=== PATIENT | female | born 1945 | race American Indian/Alaskan Native ===

== ENCOUNTER 2017-07-08 14:21 | Inpatient (IN) | payer MEDICARE, OTHER ==
[~2017-07-08] VITALS: Ht 165.1 cm; Wt 75.0 kg
[2017-07-08 14:31] LABS: BASOPHILS % 0.1 % (0.0-2.0); EOSINOPHILS # 0.1 10^3/ul (0.0-0.5); HEMATOCRIT 44.3 % (37.0-47.0); LYMPHOCYTES # 2.3 10^3/ul (0.8-2.9); LYMPHOCYTES % 18.1 % (15.0-51.0); MEAN CORPUSCULAR HEMOGLOBIN 30.9 pg (29.0-33.0); MEAN CORPUSCULAR HGB CONC 33.9 g/dl (32.0-37.0); MEAN CORPUSCULAR VOLUME 91.2 fl (82.0-101.0); MEAN PLATELET VOLUME 10.6 fl (7.4-10.4); MONOCYTES % 8.2 % (0.0-11.0); NEUTROPHIL # 9.1 10^3/ul (1.6-7.5); PLATELET COUNT 351 10^3/UL (140-415); RED BLOOD COUNT 4.86 10^6/ul (4.20-5.40); WHITE BLOOD COUNT 12.6 10^3/ul (4.8-10.8)
[2017-07-08 14:46] LABS: INR 0.91; PROTIME 12.3 Sec (12.2-14.2)
[2017-07-08 14:47] LABS: PARTIAL THROMBOPLASTIN TIME 32.1 Sec (25.0-35.0)
[2017-07-08 14:48] LABS: ANION GAP 16 (8-16); BLOOD UREA NITROGEN 24 mg/dl (7-20); CARBON DIOXIDE 23 mmol/L (21-31); CHLORIDE 108 mmol/L (97-110); CREATININE 0.96 mg/dl (0.44-1.00); GLUCOSE 117 mg/dl (70-220); POTASSIUM 4.3 mmol/L (3.5-5.1); SODIUM 143 mmol/L (135-144)
[2017-07-08 15:06] LABS: TROPONIN-I < 0.012 ng/ml (0.00-0.12)
--- NOTE | 2017-07-08 15:06 | STROKE ---
Date/Time of Note Date/Time of Note DATE: 07/08/17 TIME: 17:05 Patient Information General Patient location: emergency Arrival Date Age 71 Gender female Weight 72.73 kg Vital Signs Vital Signs Vital Signs Date Time Temp Pulse Resp B/P Pulse Ox O2 Delivery O2 Flow Rate FiO2 07/08/17 14:25 98.6 75 26 155/109 98 Labs Hematology Labs Hematology Test 07/08/17 14:25 White Blood Count 12.610^3/ul (4.8-10.8) Red Blood Count 4.8610^6/ul (4.20-5.40) Hemoglobin 15.0g/dl (12.0-16.0) Hematocrit 44.3% (37.0-47.0) Mean Corpuscular Volume 91.2fl (82.0-101.0) Mean Corpuscular Hemoglobin 30.9pg (29.0-33.0) Mean Corpuscular Hemoglobin Concent 33.9g/dl (32.0-37.0) Red Cell Distribution Width 13.0% (11.5-14.5) Platelet Count 96769^3/UL (140-415) Mean Platelet Volume 10.6fl (7.4-10.4) Neutrophils % 72.0% (39.0-77.0) Lymphocytes % 18.1% (15.0-51.0) Monocytes % 8.2% (0.0-11.0) Eosinophils % 1.0% (0.0-7.0) Basophils % 0.1% (0.0-2.0) Nucleated Red Blood Cells % 0.0/100WBC (0.0-0.0) Neutrophils # 9.110^3/ul (1.6-7.5) Lymphocytes # 2.310^3/ul (0.8-2.9) Monocytes # 1.010^3/ul (0.3-0.9) Eosinophils # 0.110^3/ul (0.0-0.5) Basophils # 0.010^3/ul (0.0-0.1) Nucleated Red Blood Cells # 0.010^3/ul (0.0-0.0) Chemistry Labs Chemistry Test 07/08/17 14:25 Sodium Level 143mmol/L (135-144) Potassium Level 4.3mmol/L (3.5-5.1) Chloride Level 108mmol/L (97-110) Carbon Dioxide Level 23mmol/L (21-31) Anion Gap 16 (8-16) Blood Urea Nitrogen 24mg/dl (7-20) Creatinine 0.96mg/dl (0.44-1.00) Glucose Level 117mg/dl (70-220) Hemoglobin A1c 5.2% (0-5.9) Calcium Level 10.0mg/dl (8.4-10.2) Coagulation Labs: Coagulation Test 07/08/17 14:25 Prothrombin Time 12.3Sec (12.2-14.2) Prothrombin Time Ratio 1.0 INR International Normalized Ratio 0.91 Activated Partial Thromboplast Time 32.1Sec (25.0-35.0) History & Physical History of Present Illness 71 F PMH HTN with R hemiplegia upon awakening at 1300 07/08/17 PST from sleep. Unclear LKW as unknown what time the patient went to bed. NIH Stroke Scale NIH Stroke Scale Total Score: 12 Date/Time Recorded DATE: 07/08/17 TIME: 17:05 Submitted By Jamie Rodríguez t-PA Imaging Review Imaging Reviewed: No Date/Time Imaging Reviewed DATE: 07/08/17 TIME: 17:05 Reason Not Reviewed Not available in remote PACS t-PA Administration Recommendation: No Weight 72.73 kg Recommedation submitted by Jamie Rodríguez Reason t-PA not Recommended LKW unknown Recommendations Impression Diagnosis 71 YO W with suspected stroke causing R hemiplegia and dysarthria. Not an IV tPA candidate as LKW unknown. Patient able to deny vision problems such as field cut. Not aphasic although hypophonic. No neglect. VAN criteria negative for LVO thus not recommending acute transfer for evaluation for mechanical thrombectomy. Imaging not appearing in remote PACS for me to personally review. Recommendation - Would clarify home medication regimen with family. If not on aspirin would load with 300 mg [place] if NCHCT negative for ICH - F/u with Radiology re: read of NCHCT - Stroke studies: MRI Brain, MRA Head/Neck, TTE with bubble, telemetry, EKG, LDL , A1c, PT, OT, SP, smoking cessation, stroke education - Local Neuro consult to guide further recs JAMIE RODRÍGUEZ MD Jul 08, 2017 15:06
--- NOTE | 2017-07-08 15:09 | RADRPT ---
PROCEDURE: CT Brain without contrast. CLINICAL INDICATION: Stroke. Altered level of consciousness. TECHNIQUE: A CT of the brain was performed on a multidetector CT scanner utilizing axial imaging f rom the skull base through the vertex without IV contrast. Multiplanar reformatted images were made . Images were reviewed on a PACS workstation. The CTDIvol is 45 mGy and the DLP is 720 mGycm. One or more of the following dose reduction techniques were utilized: 1.) Automated exposure control 2.) Adjustment of the mA +/- kV according to patient's size 3.) Use of iterative reconstruction technique. COMPARISON: None FINDINGS: There is moderate diffuse cerebral volume loss with sulcal and ventricular dilatation. No discrete e xtra-axial fluid collection or masses present. The ventricles are in the midline and of normal conto ur and configuration. There are chronic lacunar infarcts in the right and left basal ganglia. Perive ntricular white matter disease is present in both frontal lobes, right greater than left. There is n o associated mass effect. There is preservation of normal ellison-white discrimination. No intracranial hemorrhage is visualized. There is opacification of the visualized left maxillary sinus. IMPRESSION: Atrophy. White matter disease compatible with chronic small vessel ischemia. Basal ganglia chronic l acunar infarcts. No intracranial hemorrhage or mass. .Shubham Mccauley MD, MD Date Time Electronically viewed and signed by .Shubham Mccauley MD, MD on 07/08/2017 15:08 .A/
--- NOTE | 2017-07-08 15:16 | ERD ---
ER Documentation Chief Complaint Chief Complaint RIGHT SIDED WEAKNESS/ALOC X1HR HPI Patient is a 71-year-old female with hypertension who presents with right-sided weakness. The patient has right-sided weakness and numbness which started 1 hour prior per paramedics. However upon further questioning the patient actually woke up with symptoms and had been asleep for hours. A friend who is at the bedside currently also said that she may have had right leg weakness for 2 days. The patient was brought in by ambulance. Her sugar was 114. She has had no treatment as of yet. Please note the history and physical exam is limited secondary to the patient's verbal status at this time she is not giving verbal answers. Upon review of old medical records this is the patient's first visit to the emergency department. ROS All systems reviewed and are negative except as per history of present illness. PMhx/Soc History of Surgery: Yes (right hip replacement ) Anesthesia Reaction: No Hx Neurological Disorder: No Hx Respiratory Disorders: No Hx Cardiac Disorders: Yes (htn) Hx Substance Use: No Hx Tobacco Use: No Smoking Status: Never smoker FmHx Unable to obtain Physical Exam Vitals Vital Signs Date Time Temp Pulse Resp B/P Pulse Ox O2 Delivery O2 Flow Rate FiO2 07/08/17 15:04 70 16 159/80 99 Room Air 07/08/17 14:25 98.6 75 26 155/109 98 Physical Exam Const: Sonorous respirations Head: Atraumatic Eyes: Normal Conjunctiva ENT: Normal External Ears, Nose and Mouth. Neck: Full range of motion..~ No meningismus. Resp: Clear to auscultation bilaterally Cardio: Regular rate and rhythm, no murmurs Abd: Soft, non tender, non distended. Normal bowel sounds Skin: No petechiae or rashes Back: No midline or flank tenderness Ext: No cyanosis, or edema Neur: Awake but flaccid paralysis of the right upper and right lower extremity, patient has sonorous respirations but no obvious facial droop, able to follow commands, gives 1 word answers to questions Result Diagram: 07/08/17 1425 07/08/17 1425 Results 24 hrs Laboratory Tests Test 07/08/17 14:25 White Blood Count 12.610^3/ul Red Blood Count 4.8610^6/ul Hemoglobin 15.0g/dl Hematocrit 44.3% Mean Corpuscular Volume 91.2fl Mean Corpuscular Hemoglobin 30.9pg Mean Corpuscular Hemoglobin Concent 33.9g/dl Red Cell Distribution Width 13.0% Platelet Count 01894^3/UL Mean Platelet Volume 10.6fl Neutrophils % 72.0% Lymphocytes % 18.1% Monocytes % 8.2% Eosinophils % 1.0% Basophils % 0.1% Nucleated Red Blood Cells % 0.0/100WBC Neutrophils # 9.110^3/ul Lymphocytes # 2.310^3/ul Monocytes # 1.010^3/ul Eosinophils # 0.110^3/ul Basophils # 0.010^3/ul Nucleated Red Blood Cells # 0.010^3/ul Prothrombin Time 12.3Sec Prothrombin Time Ratio 1.0 INR International Normalized Ratio 0.91 Activated Partial Thromboplast Time 32.1Sec Sodium Level 143mmol/L Potassium Level 4.3mmol/L Chloride Level 108mmol/L Carbon Dioxide Level 23mmol/L Anion Gap 16 Blood Urea Nitrogen 24mg/dl Creatinine 0.96mg/dl Glucose Level 117mg/dl Hemoglobin A1c 5.2% Calcium Level 10.0mg/dl Troponin I < 0.012ng/ml Current Medications Medications (Trade) Dose Ordered Sig/Christina Route PRN Reason Start Time Stop Time Status Last Admin Dose Admin Aspirin (Aspirin) 300 mg ONCE ONCE CA 07/08/17 15:30 07/08/17 15:31 Procedures/MDM EKG pending at this time. CT brain shows no acute intracranial hemorrhage or mass per radiology. Chest X-ray 1V Interpreted by me: Soft Tissue: No acute abnormalities Bones: No acute abnormalities Mediastinum/Cardiac Silhouette/Lungs: No acute abnormalities Patient is a 71-year-old female presents with a right-sided stroke. The patient arrived at 1416. A code stroke was called upon arrival. At [address] scan until neurology was called. At [address] Rodriguez from neurology. At 1433 the patient was back from CT. At 1440 the patient had a neuro evaluation being performed by Dr. Rodriguez at the bedside. At [address] Rodriguez and we decided that no TPA would be given as the patient's onset of symptoms was outside the window and giving TPA would be high risk. I spoke with Dr. Burciaga from the panel team for admission to a telemetry bed. The patient failed a bedside swallow evaluation was given rectal aspirin. NIH stroke scale was 12. Critical Care: Time: 35 minutes excluding all billable procedures. Treatments/Evaluations: Close monitoring and treatment of unstable vital signs, cardiorespiratory, and neurologic status, while maintaining tight balance of fluid, respiratory, and cardiac interventions. Departure Diagnosis: Primary Impression: Stroke CVA mechanism: unspecified Qualified Code: I63.9 - Cerebrovascular accident (CVA), unspecified mechanism Additional Impression: Altered level of consciousness Condition: LEONEL Arciniega MD Jul 08, 2017 15:16
[2017-07-08] MEDS ORDERED: DOCU-144 PO (15:29)
[2017-07-08] MEDS ORDERED: METO-429 PO (15:29)
[2017-07-08] MEDS ORDERED: BENA40TA41 PO (15:29)
[2017-07-08] MEDS ORDERED: ACET1TAB40 PO (15:30)
[2017-07-08] MEDS ORDERED: ACETAMINOPHEN 325 MG TAB PO PRN (15:30)
[2017-07-08] MEDS ORDERED: ONDANSETRON 4 MG INJ IV PRN (15:30)
[2017-07-08] MEDS ORDERED: ASPIRIN 300 MG SUPP PR ONE (15:30)
[2017-07-08] MEDS ORDERED: ERGO2000 PO (15:30)
--- NOTE | 2017-07-08 15:42 | RADRPT ---
PROCEDURE: XR Chest. CLINICAL INDICATION: Dyspnea . Possible stroke TECHNIQUE: Single frontal chest x-ray. COMPARISON: None. FINDINGS: The lungs are clear of acute infiltrates, edema, effusions, or masses.. The cardiomediastinal silho uette is unremarkable. The osseous structures are intact. IMPRESSION: No acute cardiopulmonary disease. RPTAT: AA .Chi Siddiqui MD, MD Date Time Electronically viewed and signed by .Chi Siddiqui MD, MD on 07/08/2017 15:42 .L/
--- NOTE | 2017-07-08 16:23 | RADRPT ---
PROCEDURE: US Carotids. CLINICAL INDICATION: Stroke. Altered level of consciousness. TECHNIQUE: Sonographic images of the bilateral carotid arteries were obtained using ellison scale and color Doppler imaging. The images were reviewed on a PACS workstation. COMPARISON: None available. FINDINGS: Right: CCA 37.4 cm/sec Prox ICA 36.5 cm/sec Mid ICA 36.5 cm/sec Dist ICA 35.6 cm/sec ECA 97.2 cm/sec ICA/CCA 1.1 Left: CCA 65.4 cm/sec Prox ICA 50.8 cm/sec Mid ICA 49.3 cm/sec Dist ICA 50.8 cm/sec ECA 83.5 cm/sec ICA/CCA 0.9 Antegrade flow is seen within the vertebral arteries bilaterally. There is mild calcified plaque in the right carotid bulb and left carotid bulb. There is mild to moderate calcified and noncalcified p laque in the left ICA. There is mild intimal thickening. There is no flow-limiting stenosis or throm bosis. IMPRESSION: 1. No evidence of hemodynamically significant internal carotid artery stenosis bilaterally. 2. Antegrade flow seen within the vertebral arteries bilaterally. RPTAT: HLBP Validated velocity measurements with angiographic measurements, velocity criteria are extrapolated f rom diameter data as defined by the Society of Radiologists in Ultrasound Consensus Conference Radio logy 2003; 229;340-346. This study does indirectly reference the measurement of the distal ICA diame ter as the denominator for stenosis measurement. U Consensus Conference Criteria for the Diagnosis of Carotid Artery Stenosis Degree of Stenosis, % ICA PSV, cm/sec Plaque Estimate, % ICA/CCA PSV Ratio Normal <125 None <2.0 <50 <125 <50 <2.0 50 69 125-230 >50 2.0-4.0 >70 but less than near occlusion >230 >50 <4.0 Near occlusion High, low, or undetectable Visible Variable Total occlusion Undetectable Visible, no detectable lumen Not applicable .Austin Way MD, Date Time Electronically viewed and signed by .Austin Way MD, MD on 07/08/2017 16:23 .P/
--- NOTE | 2017-07-08 17:18 | HP ---
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 Will likely place NG tomorrow. Maitnenace fluids for now - PT/OT evaluation - Telemetry - Need to obtain collateral regarding her medical history Problems: HPI/ROS Admit Date/Time Admit Date/Time Hx of Present Illness 71 yo female with unclear medical history presenting with R hemiplegia and aphasia Unclear how long these symptoms have been present. Patient unable to provide history Per ED staff, a friend accompanied the patient to the hospital and said that she was noticed this way when she woke up this morning, but may have had R leg weakenss for a couple days. However also says that she has home assitants who change her diapers for her, and that there is a suggestion she is in hospice? I am unable to confirm these details as available phone number goes unanswered PMH/Family/Social Past Medical History Medical History: other Past Surgical History Past Surgical Hx: other Social History Alcohol Use: none Smoking Status: Never smoker Drug Use: none Exam/Review of Systems Vital Signs Vitals Vital Signs Date Time Temp Pulse Resp B/P Pulse Ox O2 Delivery O2 Flow Rate FiO2 07/08/17 15:49 81 17 150/80 100 Room Air 07/08/17 14:25 98.6 Exam Exam Alert, unable to answer questions beyond one word answers A bit gurgly w secretions RRR Clear lungs R hemiplegia though winces to pain in R hand and R leg, very mildly wiggles toes /fingers in both to pain LUE and LLE in tact Negative babinksi bilaterally Aphasia, pupils equal and reactive to light Labs Result Diagram: 07/08/17 1425 07/08/17 1425 Medications Medications Current Medications Dextrose/Sodium Chloride (D5-1/2ns) 1,000 ml @ 100 mls/hr Q10H IV ; Start at 17:05; Status UNV Enoxaparin Sodium (Lovenox) 40 mg DAILY SC ; Start 07/09/17 at 09:00; Status UNV BERNARD PICKERING MD Jul 08, 2017 17:18
[2017-07-08] MEDS ORDERED: NACL 0.9% 3 ML SYG IV SCH (17:30)
[2017-07-08] MEDS: DEXTROSE 5%-0.45% NACL 1,000 ML IV SCH (18:07)
[2017-07-08 20:00] VITALS: Ht 165.1 cm; Wt 75.0 kg
[2017-07-08 20:10] VITALS: BP 149/76; RESP 20
[2017-07-08 20:16] VITALS: PULSE 82
[2017-07-09] VITALS (11 sets, daily range): BP systolic 114–188; BP diastolic 60–86; PULSE 61–130; RESP 16–20
[2017-07-09] MEDS: DEXTROSE 5%-0.45% NACL 1,000 ML IV SCH ×2 (03:05→12:39)
[2017-07-09 06:02] LABS: BASOPHILS % 0.1 % (0.0-2.0); EOSINOPHILS # 0.1 10^3/ul (0.0-0.5); HEMATOCRIT 37.6 % (37.0-47.0); LYMPHOCYTES # 1.3 10^3/ul (0.8-2.9); LYMPHOCYTES % 10.6 % (15.0-51.0); MEAN CORPUSCULAR HEMOGLOBIN 31.4 pg (29.0-33.0); MEAN CORPUSCULAR HGB CONC 34.6 g/dl (32.0-37.0); MEAN CORPUSCULAR VOLUME 90.8 fl (82.0-101.0); MEAN PLATELET VOLUME 10.7 fl (7.4-10.4); MONOCYTE # 0.9 10^3/ul (0.3-0.9); NEUTROPHILS % 80.9 % (39.0-77.0); PLATELET COUNT 297 10^3/UL (140-415); RED BLOOD COUNT 4.14 10^6/ul (4.20-5.40); RED CELL DISTRIBUTION WIDTH 12.7 % (11.5-14.5); WHITE BLOOD COUNT 12.3 10^3/ul (4.8-10.8)
[2017-07-09 06:21] LABS: ALBUMIN 3.4 g/dl (3.3-4.9); ALBUMIN/GLOBULIN RATIO 1.09; BILIRUBIN,INDIRECT 0.3 mg/dl (0-1.1); BILIRUBIN,TOTAL 0.3 mg/dl (0.2-1.3); CALCIUM 9.1 mg/dl (8.4-10.2); CHOL/HDL RATIO 4.9 RATIO; CREATININE 0.91 mg/dl (0.44-1.00); POTASSIUM 3.5 mmol/L (3.5-5.1); TOTAL PROTEIN 6.5 g/dl (6.1-8.1)
[2017-07-09 06:45] LABS: THYROID STIMULATING HORMONE 1.47 MIU/L (0.465-4.680)
[2017-07-09] MEDS: ASPIRIN (EC) 81 MG TAB PO SCH (07:36)
[2017-07-09] MEDS: ENOXAPARIN 40 MG/0.4 ML SYG SC SCH (10:09)
--- NOTE | 2017-07-09 14:07 | CONS ---
Date/Time of Note Date/Time of Note DATE: 07/09/17 TIME: 13:59 Assessment/Plan Assessment/Plan Chief Complaint/Hosp Course 71 yo female with unclear hx, admitted with L MCA syndrome out of window for thrombolytics eval by tele neuro not a candidate for intervention. Recommend Please discontinue D5 Fluids, in patients with acute CVA there is risk of increasing edema with D5W normal saline is more appropriate if hydration is necessary MRI Brain and MRA Head, Carotid duplex is wnl SBP <140/90 continue rectal aspirin 300 mg until swallow documented ECHO w bubble LLD> 132 will need high intensity statin Lipitor 80 mg qhs when swallow is passed DVT ppx PT/OT/Speech swallow Problems: Consultation Date/Type/Reason Admit Date/Time 07/09/17 Date of Consultation: Jul 09, 2017 Type of Consultation: Neurology Reason for Consultation CVA Referring Provider: BERNARD PICKERING MD Hx of Present Illness 71 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 No thrombolytics unable to identify time of onset. Details regarding her history are unclear, sx began upon awakening. She was eval. by tele neuro. CTH: atrophy, white matter disease, chronic basal ganglia lacunar infarcts no ICH. Subjective hx not possible: pt non-verbal Past Medical History unknown Medical History: other Past Surgical History Past Surgical Hx: other Social History Alcohol Use: none Smoking Status: Unknown if ever smoked Drug Use: none Exam/Review of Systems Vital Signs Vitals Vital Signs Date Time Temp Pulse Resp B/P Pulse Ox O2 Delivery O2 Flow Rate FiO2 07/09/17 12:02 114 07/09/17 11:40 98.5 20 188/86 100 07/08/17 19:30 Room Air Intake and Output 07/08/17 07/08/17 07/09/17 15:00 23:00 07:00 Intake Total 0 ml Balance 0 ml Exam awake unable to verbalize can follow only 1 step command lifts leg leg, shows thumbs up left hand Left gaze preference CN: TAMRA corneal blink to threat on left right facial droop Motor: right arm and leg plegic localizes to pain left arm and leg antigravity sensory neglect on right Results Result Diagram: 07/09/17 0526 07/09/17 0526 Results 24 hrs Laboratory Tests Test 07/08/17 14:25 07/09/17 05:26 White Blood Count 12.6 H 12.3 H Red Blood Count 4.86 4.14 L Hemoglobin 15.0 13.0 Hematocrit 44.3 37.6 Mean Corpuscular Volume 91.2 90.8 Mean Corpuscular Hemoglobin 30.9 31.4 Mean Corpuscular Hemoglobin Concent 33.9 34.6 Red Cell Distribution Width 13.0 12.7 Platelet Count 351 297 Mean Platelet Volume 10.6 H 10.7 H Neutrophils % 72.0 80.9 H Lymphocytes % 18.1 10.6 L Monocytes % 8.2 7.0 Eosinophils % 1.0 1.0 Basophils % 0.1 0.1 Nucleated Red Blood Cells % 0.0 0.0 Neutrophils # 9.1 H 10.0 H Lymphocytes # 2.3 1.3 Monocytes # 1.0 H 0.9 Eosinophils # 0.1 0.1 Basophils # 0.0 0.0 Nucleated Red Blood Cells # 0.0 0.0 Prothrombin Time 12.3 Prothrombin Time Ratio 1.0 INR International Normalized Ratio 0.91 Activated Partial Thromboplast Time 32.1 Sodium Level 143 142 Potassium Level 4.3 3.5 Chloride Level 108 110 Carbon Dioxide Level 23 23 Anion Gap 16 13 Blood Urea Nitrogen 24 H 22 H Creatinine 0.96 0.91 Glucose Level 117 136 Hemoglobin A1c 5.2 5.1 Calcium Level 10.0 9.1 Troponin I < 0.012 Total Bilirubin 0.3 Direct Bilirubin 0.00 Indirect Bilirubin 0.3 Aspartate Amino Transf (AST/SGOT) 16 Alanine Aminotransferase (ALT/SGPT) 29 Alkaline Phosphatase 114 Total Protein 6.5 Albumin 3.4 Globulin 3.10 Albumin/Globulin Ratio 1.09 Triglycerides Level 123 Cholesterol Level 197 LDL Cholesterol, Calculated 132 HDL Cholesterol 40 Cholesterol/HDL Ratio 4.9 Thyroid Stimulating Hormone (TSH) 1.470 Medications Medications Current Medications Dextrose/Sodium Chloride (D5-1/2ns) 1,000 ml @ 100 mls/hr Q10H IV Last administered on 07/09/17 03:05; Admin Dose 100 MLS/HR; Start 07/08/17 at 17: 05 Enoxaparin Sodium (Lovenox) 40 mg DAILY SC Last administered on 07/09/17 10: 09; Admin Dose 40 MG; Start 07/09/17 at 09:00 Aspirin (Halfprin) 81 mg DAILY PO ; Start 07/09/17 at 09:00 JUDITH RAHMAN MD Jul 09, 2017 14:07
[2017-07-09] MEDS: LACTATED RINGER'S 1,000 ML IV SCH (15:15)
--- NOTE | 2017-07-09 15:32 | PN ---
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 Will likely place NG tomorrow. Maitnenace gentle NS fluids for now - PT/OT on board - Telemetry to assess for A Fib - Dr Martel following H/o hypertension H/o hip replacemetn H/o cognitive impairment Anticipate she will need discharge to long-term care facility given the extent of her neurologic deficits Problems: Subjective 24 Hr Interval Summary Free Text/Dictation I spoke with the patient's daughter Mayuri by phone. Says her mom had limited functional mobility around the house 2/2 her hip replacemetn which apparently did not go well. She had some cognitive impairment it sounds like but was able to converse logically. She did require help from family with preparing meals, etc. She is not aware of any advanced directives she may have had and wishes for us to pursue every intervention including PEG if necessary Patinet is unchange from yesterday, unable to communicate Exam/Review of Systems Vital Signs Vitals Vital Signs Date Time Temp Pulse Resp B/P Pulse Ox O2 Delivery O2 Flow Rate FiO2 07/09/17 12:02 114 07/09/17 11:40 98.5 20 188/86 100 07/08/17 19:30 Room Air Intake and Output 07/08/17 07/08/17 07/09/17 14:59 22:59 06:59 Intake Total 0 ml Balance 0 ml Exam Alert, expressive aphasia R facial droop R hemilplegia Results Result Diagram: 07/09/17 0526 07/09/17 0526 Results 24 hrs Laboratory Tests Test 07/09/17 05:26 White Blood Count 12.3 H Red Blood Count 4.14 L Hemoglobin 13.0 Hematocrit 37.6 Mean Corpuscular Volume 90.8 Mean Corpuscular Hemoglobin 31.4 Mean Corpuscular Hemoglobin Concent 34.6 Red Cell Distribution Width 12.7 Platelet Count 297 Mean Platelet Volume 10.7 H Neutrophils % 80.9 H Lymphocytes % 10.6 L Monocytes % 7.0 Eosinophils % 1.0 Basophils % 0.1 Nucleated Red Blood Cells % 0.0 Neutrophils # 10.0 H Lymphocytes # 1.3 Monocytes # 0.9 Eosinophils # 0.1 Basophils # 0.0 Nucleated Red Blood Cells # 0.0 Sodium Level 142 Potassium Level 3.5 Chloride Level 110 Carbon Dioxide Level 23 Anion Gap 13 Blood Urea Nitrogen 22 H Creatinine 0.91 Glucose Level 136 Hemoglobin A1c 5.1 Calcium Level 9.1 Total Bilirubin 0.3 Direct Bilirubin 0.00 Indirect Bilirubin 0.3 Aspartate Amino Transf (AST/SGOT) 16 Alanine Aminotransferase (ALT/SGPT) 29 Alkaline Phosphatase 114 Total Protein 6.5 Albumin 3.4 Globulin 3.10 Albumin/Globulin Ratio 1.09 Triglycerides Level 123 Cholesterol Level 197 LDL Cholesterol, Calculated 132 HDL Cholesterol 40 Cholesterol/HDL Ratio 4.9 Thyroid Stimulating Hormone (TSH) 1.470 Medications Medications Current Medications Enoxaparin Sodium (Lovenox) 40 mg DAILY SC Last administered on 07/09/17 10: 09; Admin Dose 40 MG; Start 07/09/17 at 09:00 Aspirin 81 mg 81 mg DAILY PO ; Start 07/09/17 at 09:00 Lactated Ringer's (Lr) 1,000 ml @ 75 mls/hr [id number] IV Last administered on 15:15; Admin Dose 75 MLS/HR; Start 07/09/17 at 15:00 BERNARD PICKERING MD Jul 09, 2017 15:32
[2017-07-09] MEDS ORDERED: LABETALOL HCL 20MG INJ IV ONE (23:00)
[2017-07-10] VITALS (11 sets, daily range): BP systolic 103–191; BP diastolic 57–97; PULSE 97–124; RESP 20
[2017-07-10] MEDS: LACTATED RINGER'S 1,000 ML IV SCH ×3 (04:59→21:27)
[2017-07-10 07:53] LABS: OPIATES Negative (NEGATIVE)
[2017-07-10 07:59] LABS: BARBITURATES Negative (NEGATIVE); BENZODIAZEPINES Negative (NEGATIVE); CANNABINOIDS Negative (NEGATIVE); COCAINE Negative (NEGATIVE)
[2017-07-10 08:00] LABS: ADD UMIC YES; UR ASCORBIC ACID NEGATIVE (NEGATIVE); UR BACTERIA FEW /HPF (NONE SEEN); UR BILIRUBIN (Dip) NEGATIVE (NEGATIVE); UR BLOOD (Dip) 2+ mg/dL (NEGATIVE); UR CLARITY SLIGHTLY CLOUDY (CLEAR); UR COLOR YELLOW (YELLOW); UR GLUCOSE (Dip) NEGATIVE (NEGATIVE); UR KETONES (Dip) TRACE mg/dL (NEGATIVE); UR LEUKOCYTE ESTERASE (Dip) 1+ Leu/ul (NEGATIVE); UR NITRITE (Dip) POSITIVE (NEGATIVE); UR RBC 3 /HPF (0-5); UR SPECIFIC GRAVITY (Dip) 1.013 (1.003-1.030); UR SQUAMOUS EPITHELIAL CELL FEW /HPF (FEW); UR TOTAL PROTEIN (Dip) NEGATIVE (NEGATIVE); UR UROBILINOGEN (Dip) NEGATIVE (NEGATIVE)
[2017-07-10] MEDS: ASPIRIN (EC) 81 MG TAB PO SCH (09:00)
[2017-07-10] MEDS: ENOXAPARIN 40 MG/0.4 ML SYG SC SCH (09:00)
--- NOTE | 2017-07-10 12:45 | CONS ---
Date/Time of Note Date/Time of Note DATE: 07/10/17 TIME: 12:44 Consult Date/Type/Reason Admit Date/Time Jul 08, 2017 at 15:12 Initial Consult Date 07/09/17 Type of Consultation: Neurology Reason for Consultation CVA Ordering Provider: BERNARD PICKERING MD Subjective remains aphasic no improvement Objective Vital Signs Date Time Temp Pulse Resp B/P Pulse Ox O2 Delivery O2 Flow Rate FiO2 07/10/17 12:04 97 07/10/17 11:13 98.0 20 152/85 99 07/08/17 19:30 Room Air Intake and Output 07/09/17 07/09/17 07/10/17 15:00 23:00 07:00 Intake Total 0 ml 950 ml Balance 0 ml 950 ml Results/Medications Result Diagram: 07/09/17 0526 07/09/17 0526 Results 24 hrs Laboratory Tests Test 07/10/17 04:00 Urine Opiates Screen Negative Urine Barbiturates Negative Urine Amphetamines Screen Negative Urine Benzodiazepines Screen Negative Urine Cocaine Screen Negative Urine Cannabinoids Negative Medications Current Medications Enoxaparin Sodium (Lovenox) 40 mg DAILY SC Last administered on 07/10/17 09: 00; Admin Dose 40 MG; Start 07/09/17 at 09:00 Aspirin 81 mg 81 mg DAILY PO ; Start 07/09/17 at 09:00 Lactated Ringer's (Lr) 1,000 ml @ 75 mls/hr [id number] IV Last administered on 04:59; Admin Dose 75 MLS/HR; Start 07/09/17 at 15:00 Hydralazine HCl (Apresoline) 10 mg Q4H PRN IV ELEVATED BLOOD PRESSURE; Start 07/09/17 at 23:00 Assessment/Plan Chief Complaint/Hosp Course 71 yo female with unclear hx, admitted with L MCA syndrome out of window for thrombolytics eval by tele neuro not a candidate for intervention. Recommend Please discontinue D5 Fluids, in patients with acute CVA there is risk of increasing edema with D5W normal saline is more appropriate if hydration is necessary MRI Brain and MRA Head pending Carotid duplex is wnl SBP <140/90 continue rectal aspirin 300 mg until swallow documented ECHO w bubble LLD> 132 will need high intensity statin Lipitor 80 mg qhs when swallow is passed DVT ppx failed swallow NPO will likely require a PEG and SNF placement once imaging completed Problems: JUDITH RAHMAN MD Jul 10, 2017 12:45
--- NOTE | 2017-07-10 13:25 | RADRPT ---
Echocardiogram Report Patient Name: ESVIN TRACY Gender: Female Date: 1945 Study Date: 09-Jul-2017 Window Cutter: [id number] Location: 502 Ref. Physician: BERNARD PICKERING Quality: Good Procedures: Transthoracic echocardiogram with complete 2D, M-Mode, and doppler examination. Indications: Stroke. 2D/M Mode Doppler Measurement Value Normal Ranges Measurement Value Normal Ranges AoR Diam MM 2.8 cm RAÚL Vmax 2.2 cm2 ACS MM 1.9 cm RAÚL VTI 2.2 cm2 LA/Ao MM 1.2 AV Mean Carlos 0.8 m/sec LA Dimen MM 3.4 cm AV Mean PG 3.0 mmHg LVIDd 2D 4.7 3.5 - 5.6 cm AV Peak Carlos 1.2 m/sec LVIDs 2D 3.2 2.1 - 4.1 cm AV Peak PG 5.3 mmHg LVPWd 2D 1.1 0.6 - 1.1 cm AV VTI 17.5 cm IVSd 2D 1.1 0.6 - 1.1 cm LVOT Peak Carlos 0.8 m/sec EDV 2D 101.3 cm3 LVOT Peak PG 2.8 mmHg ESV 2D 33.3 cm3 MV E Peak Carlos 1.0 m/sec EF 2D 60.0 50.0 - 65.0 % MV A Peak Carlos 0.8 m/sec LVOT Diam 2.0 cm MV E/A 1.3 MV Decel Time 61 msec MV Decel Simpson 17 MV E/A 1.3 TR Peak Carlos 3.0 m/sec TR Peak PG 37.1 mmHg RVSP 40.0 mmHg RA Pressure 3.0 Findings Left Ventricle: Normal left ventricular cavity size. Normal left ventricular wall thickness. Mild left ventricular systolic dysfunction. Ejection fraction is visually estimated at 45 %. Severe hypokinesis of the mid-distal septum, mid-distal inferior wall, and apex. Right Ventricle: Normal right ventricular size. Normal right ventricular systolic function. Left Atrium: There is mild enlargement of left atrium. Right Atrium: The right atrium is normal in size. Mitral Valve: Normal appearance of the mitral valve. Trace mitral regurgitation. Aortic Valve: Normal appearance of the aortic valve. No hemodynamically significant aortic stenosis by doppler. Trace aortic valve regurgitation. Tricuspid Valve: Normal appearance of the tricuspid valve. Estimated peak PA systolic pressure 40 mmHg. There is trace to mild tricuspid regurgitation. Pericardium: Normal pericardium with no significant pericardial effusion. Aorta: Normal aortic root. IVC: The IVC is not well visualized. Conclusions 1.Normal left ventricular cavity size. Normal left ventricular wall thickness. Mild left ventricular systolic dysfunction. Ejection fraction is visually estimated at 45 %. Severe hypokinesis of the mid-distal septum, mid-distal inferior wall, and apex. 2.No significant valvular stenosis or regurgitation seen. 3.Estimated peak PA systolic pressure 40 mmHg plus RA pressure. Electronically Signed By: Dylan Bonilla 10-Jul-2017 13:23:52 -0800 Patient Name: ESVIN TRACY Study Date: 09-Jul-2017 [id number]
--- NOTE | 2017-07-10 13:28 | RADRPT ---
Echocardiogram Report Patient Name: ESVIN TRACY Gender: Female Date: 1945 Study Date: 10-Jul-2017 Human Resources Office Manager: JEANNIE Location: I Ref. Physician: SAVANAH EVANGELISTA Quality: Technically Difficult Study Procedures: Transthoracic echocardiogram examination. Indications: stroke. Findings Atrial Septum: Agitated saline was injected intravenously for microbubble contrast study. No right to left shunt was identified with and with out valsalva maneuver. Conclusions 1.Limited study to evaluate for shunt via bubble study. 2.Agitated saline was injected intravenously for microbubble contrast study. No right to left shunt was identified with and with out valsalva maneuver though somewhat poor visualization. Electronically Signed By: Dylan Bonilla 10-Jul-2017 13:26:48 -0800 Patient Name: ESVIN TRACY Study Date: 10-Jul-2017 [id number]
--- NOTE | 2017-07-10 15:26 | PN ---
Date/Time of Note Date/Time of Note DATE: 07/10/17 TIME: 15:16 Assessment/Plan VTE Prophylaxis VTE Prophylaxis Intervention: LMWH Lines/Catheters IV [facility]from [facility] Peripheral IV Urinary Cath still in place: No Assessment/Plan Chief Complaint/Hosp Course 1. Aphasia with right-sided weakness likely secondary to left MCA infarct MRI/MRA of the head is pending Neurology is following Carotid duplex wnl Echo shows CHF with an EF of 45%, no shunt was noted on bubble study continue rectal aspirin 300 mg until swallow documented A1c at 5.2 LDL at 132 PT eval Patient failed video swallow, n.p.o. for now will consider NG tube placement in the next 1-2 days IV fluids 2. CHF-newly diagnosed EF of 45% Cardiology consultation obtained 3. H/o hypertension-stable H/o hip replacement H/o cognitive impairment Prophylaxis: Lovenox Problems: Subjective 24 Hr Interval Summary Subjective hx not possible: pt non-verbal Exam/Review of Systems Vital Signs Vitals Vital Signs Date Time Temp Pulse Resp B/P Pulse Ox O2 Delivery O2 Flow Rate FiO2 07/10/17 12:04 97 07/10/17 11:13 98.0 20 152/85 99 07/08/17 19:30 Room Air Intake and Output 07/09/17 07/09/17 07/10/17 15:00 23:00 07:00 Intake Total 0 ml 950 ml Balance 0 ml 950 ml Exam Constitutional: non-verbal Respiratory: clear to auscultation Cardiovascular: regular rate and rhythm Gastrointestinal: soft, No distended Musculoskeletal: nl extremities to inspection Neurological: focal weakness (Right side, aphasic) Results Result Diagram: 07/09/17 0526 07/09/17 0526 Results 24 hrs Laboratory Tests Test 07/10/17 04:00 Urine Opiates Screen Negative Urine Barbiturates Negative Urine Amphetamines Screen Negative Urine Benzodiazepines Screen Negative Urine Cocaine Screen Negative Urine Cannabinoids Negative Medications Medications Current Medications Enoxaparin Sodium (Lovenox) 40 mg DAILY SC Last administered on 07/10/17 09: 00; Admin Dose 40 MG; Start 07/09/17 at 09:00 Aspirin 81 mg 81 mg DAILY PO ; Start 07/09/17 at 09:00 Lactated Ringer's (Lr) 1,000 ml @ 75 mls/hr [id number] IV Last administered on 11 /20/17at 04:59; Admin Dose 75 MLS/HR; Start 07/09/17 at 15:00 Hydralazine HCl (Apresoline) 10 mg Q4H PRN IV ELEVATED BLOOD PRESSURE; Start 07/09/17 at 23:00 CHARI MONTOYA Jul 10, 2017 15:26
[2017-07-10] MEDS: ASPIRIN 300 MG SUPP PR SCH (16:30)
--- NOTE | 2017-07-10 16:34 | CONS ---
Date/Time of Note Date/Time of Note DATE: 07/10/17 TIME: 16:25 Assessment/Plan Assessment/Plan Chief Complaint/Hosp Course 1. acute CVA 2. MILD cardiomyopathy 3. 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 HTN 5. Dyslipidemia 6./ dysphagia 7. aphasia and right sided weakness ASA for now pt is NPO FOR NOW start stain once able to tolerate po meds We will slowly introduce carvedilol and ARB/SAMARA inhibitors once the acute phase of CVA has resolved and patient is able to tolerate p.o. medications. Diuresis will be given as needed. At this point does not appear to be fluid overloaded. We will monitor on the telemetry to rule out evidence of paroxysmal atrial fibrillation Thank you for his referral. I will continue to follow along with you. BIBI MOORE MD [facility] Problems: Consultation Date/Type/Reason Admit Date/Time Jul 08, 2017 at 15:12 Date of Consultation: Jul 10, 2017 Type of Consultation: cardiology Reason for Consultation cardiomyopathy Referring Provider: CHARI MONTOYA of Present Illness CC: one sided weakness HPI: Negative for his referral. Patient is nonverbal unable to afford them history to me. This is on unfortunate 71-year-old female with unclear past medical history who was admitted because of a stroke. Workup has showed MCA stroke. As part of her workup echocardiogram has been done which has showed cardiomyopathy ejection fraction of 45% with wall motion abnormalities. Again patient remained nonverbal and is unable to provide any history to me. There is no reported chest pain or pressure palpitation. There is no known previous history of coronary artery disease. Patient is at this point unable to move her right side and appeared to be aphasic and has dysphagia and has to be kept n.p.o for that reason. PMH: HTN. PSH: hip replacement Medications reviewed as per medical reconciliation sheet which were personally reviewed. Allergy no reported drug allergies Social history patient does not smoke. Family history: No reported early coronary artery disease Review of systems above-mentioned basic was obtained. Past Medical History Medical History: other Past Surgical History Past Surgical Hx: other Social History Alcohol Use: none Smoking Status: Unknown if ever smoked Drug Use: none Exam/Review of Systems Vital Signs Vitals Vital Signs Date Time Temp Pulse Resp B/P Pulse Ox O2 Delivery O2 Flow Rate FiO2 07/10/17 16:12 104 07/10/17 15:16 100.0 20 173/88 98 07/08/17 19:30 Room Air Intake and Output 07/09/17 07/09/17 07/10/17 15:00 23:00 07:00 Intake Total 0 ml 950 ml Balance 0 ml 950 ml Exam General: no acute distress HEENT: NC/AT. pupils are equal. round. NECK: NO JVD. no stridor. CV: RRR. systolic murmur; no gallop or rubs. PULM: no wheezing or rhonchi. GI: SOFT, NT, ND, no rebound or guarding Extremity: trace B/L LE edema. no clubbing. neuro: opens her eyes but does not verbalize or follow commands. There is significant right-sided weakness as well. Psych: calm now rectal: deferred ECG reviewedl; NSR ant infarct age undetermined. ECHO : 1. Normal left ventricular cavity size. Normal left ventricular wall thickness. Mild left ventricular systolic dysfunction. Ejection fraction is visually estimated at 45 %. Severe hypokinesis of the mid-distal septum, mid-distal inferior wall, and apex. 2. No significant valvular stenosis or regurgitation seen. 3. Estimated peak PA systolic pressure 40 mmHg plus RA pressure. CT head results reviewed. CXR: no ACUTE cardiopulm disease. Results Result Diagram: 07/09/1752507/09/17525 Results 24 hrs Laboratory Tests Test 07/10/17 04:00 Urine Opiates Screen Negative Urine Barbiturates Negative Urine Amphetamines Screen Negative Urine Benzodiazepines Screen Negative Urine Cocaine Screen Negative Urine Cannabinoids Negative Medications Medications Current Medications Enoxaparin Sodium 40 mg 40 mg DAILY SC Last administered on 07/10/17 09:00; Admin Dose 40 MG; Start 07/09/17 at 09:00 Lactated Ringer's (Lr) 1,000 ml @ 75 mls/hr [id number] IV Last administered on 04:59; Admin Dose 75 MLS/HR; Start 07/09/17 at 15:00 Hydralazine HCl (Apresoline) 10 mg Q4H PRN IV ELEVATED BLOOD PRESSURE; Start 07/09/17 at 23:00 Aspirin (Aspirin) 300 mg DAILY [place] ; Start 07/10/17 at 16:30 BIBI MOORE MD Jul 10, 2017 16:34
[2017-07-11] VITALS (12 sets, daily range): BP systolic 121–167; BP diastolic 69–98; PULSE 86–110; RESP 18–22
[2017-07-11 07:27] LABS: BASOPHILS % 0.1 % (0.0-2.0); EOSINOPHILS # 0.1 10^3/ul (0.0-0.5); EOSINOPHILS % 0.6 % (0.0-7.0); HEMATOCRIT 37.2 % (37.0-47.0); HEMOGLOBIN 12.6 g/dl (12.0-16.0); LYMPHOCYTES # 1.3 10^3/ul (0.8-2.9); LYMPHOCYTES % 10.9 % (15.0-51.0); MEAN CORPUSCULAR HEMOGLOBIN 30.8 pg (29.0-33.0); MEAN CORPUSCULAR HGB CONC 33.9 g/dl (32.0-37.0); MEAN PLATELET VOLUME 10.9 fl (7.4-10.4); MONOCYTES % 8.6 % (0.0-11.0); NEUTROPHIL # 9.2 10^3/ul (1.6-7.5); NEUTROPHILS % 79.4 % (39.0-77.0); PLATELET COUNT 293 10^3/UL (140-415); RED BLOOD COUNT 4.09 10^6/ul (4.20-5.40); WHITE BLOOD COUNT 11.6 10^3/ul (4.8-10.8)
[2017-07-11 07:57] LABS: CREATININE 0.87 mg/dl (0.44-1.00); MAGNESIUM 1.6 mg/dl (1.7-2.5); POTASSIUM 3.1 mmol/L (3.5-5.1)
[2017-07-11] MEDS: ASPIRIN 300 MG SUPP PR SCH (07:58)
[2017-07-11] MEDS: ENOXAPARIN 40 MG/0.4 ML SYG SC SCH (08:00)
[2017-07-11] MEDS ORDERED: MAGNESIUM SULFATE 3 GM in DEXTROSE 5% 100 ML IVPB SCH (11:00)
[2017-07-11] MEDS: POTASSIUM CHLORIDE 250 ML IVPB SCH ×2 (11:00→18:47)
--- NOTE | 2017-07-11 14:35 | RADRPT ---
Vent Rate: 120 bpm RR Interval: 0 msec VA Interval: 156 msec QRS Duration: 90 msec QT Interval: 424 msec QTC Interval: 599 msec P-R-T [place]: 64 - -57 - 69 degrees Sinus tachycardia Left axis deviation RSR apos; or QR pattern in V1 suggests right ventricular conduction delay Anteroseptal infarct , age undetermined Marked ST abnormality, possible inferior subendocardial injury Abnormal ECG Electronically Signed By: Vinicius Tello [id number]
--- NOTE | 2017-07-11 16:00 | CONS ---
Date/Time of Note Date/Time of Note DATE: 07/11/17 TIME: 15:58 Consult Date/Type/Reason Admit Date/Time Jul 08, 2017 at 15:12 Initial Consult Date 07/10/17 Type of Consultation: cardiology Ordering Provider: CHARI MONTOYA Subjective cardiology follow up note: S: d/w staff and rhythm was reviewed. pt remains in NSR/ sinus tachycardia. pt remains nonverbal. O: General: no acute distress HEENT: NC/AT. pupils are equal. round. NECK: NO JVD. no stridor. CV: RRR. systolic murmur; no gallop or rubs. PULM: no wheezing or rhonchi. GI: SOFT, NT, ND, no rebound or guarding Extremity: trace B/L LE edema. no clubbing. neuro: opens her eyes but does not verbalize or follow commands. There is significant right-sided weakness as well. Psych: calm now rectal: deferred ECG reviewed; NSR ant infarct age undetermined. ECHO : 1. Normal left ventricular cavity size. Normal left ventricular wall thickness. Mild left ventricular systolic dysfunction. Ejection fraction is visually estimated at 45 %. Severe hypokinesis of the mid-distal septum, mid-distal inferior wall, and apex. 2. No significant valvular stenosis or regurgitation seen. 3. Estimated peak PA systolic pressure 40 mmHg plus RA pressure. CT head results reviewed. CXR: no ACUTE cardiopulm disease. Objective Vital Signs Date Time Temp Pulse Resp B/P Pulse Ox O2 Delivery O2 Flow Rate FiO2 07/11/17 15:49 98.0 102 20 141/69 98 07/08/17 19:30 Room Air Intake and Output 07/10/17 07/10/17 07/11/17 15:00 23:00 07:00 Intake Total 1200 ml 0 ml Balance 1200 ml 0 ml Results/Medications Result Diagram: 07/11/1762407/11/17 0625 Results 24 hrs Laboratory Tests Test 07/11/17 06:25 White Blood Count 11.6 H Red Blood Count 4.09 L Hemoglobin 12.6 Hematocrit 37.2 Mean Corpuscular Volume 91.0 Mean Corpuscular Hemoglobin 30.8 Mean Corpuscular Hemoglobin Concent 33.9 Red Cell Distribution Width 13.0 Platelet Count 293 Mean Platelet Volume 10.9 H Neutrophils % 79.4 H Lymphocytes % 10.9 L Monocytes % 8.6 Eosinophils % 0.6 Basophils % 0.1 Nucleated Red Blood Cells % 0.0 Neutrophils # 9.2 H Lymphocytes # 1.3 Monocytes # 1.0 H Eosinophils # 0.1 Basophils # 0.0 Nucleated Red Blood Cells # 0.0 Sodium Level 141 Potassium Level 3.1 L Chloride Level 105 Carbon Dioxide Level 29 Anion Gap 10 Blood Urea Nitrogen 12 Creatinine 0.87 Glucose Level 102 Calcium Level 9.0 Magnesium Level 1.6 L Medications Current Medications Enoxaparin Sodium 40 mg 40 mg DAILY SC Last administered on 07/11/17 08:00; Admin Dose 40 MG; Start 07/09/17 at 09:00 Lactated Ringer's (Lr) 1,000 ml @ 75 mls/hr [id number] IV Last administered on 21:27; Admin Dose 75 MLS/HR; Start 07/09/17 at 15:00 Hydralazine HCl (Apresoline) 10 mg Q4H PRN IV ELEVATED BLOOD PRESSURE; Start 07/09/17 at 23:00 Aspirin 300 mg 300 mg DAILY DE Last administered on 07/11/17 07:58; Admin Dose 300 MG; Start 07/10/17 at 16:30 Potassium Chloride (KCl 40 MEQ/250 ML NS) 250 ml @ 62.5 mls/hr Q4H IVPB Last administered on 07/11/17 11:00; Admin Dose 62.5 MLS/HR; Start 07/11/17 at 11: 00; Stop 07/11/17 at 18:59 Assessment/Plan Chief Complaint/Hosp Course 1. acute CVA 2. MILD cardiomyopathy 3. abnormal ECG and echo c/w CAD/ Old [place] 4. HTN 5. Dyslipidemia 6./ dysphagia 7. aphasia and right sided weakness ASA for now rectally. pt is NPO FOR NOW start stain once able to tolerate po meds We will slowly introduce carvedilol and ARB/SAMARA inhibitors once the acute phase of CVA has resolved and patient is able to tolerate p.o. medications. Diuresis will be given as needed. At this point does not appear to be fluid overloaded. We will monitor on the telemetry to rule out evidence of paroxysmal atrial fibrillation Thank you for his referral. I will continue to follow along with you. BIBI MOORE MD [facility] Problems: BIBI MOORE MD Jul 11, 2017 16:00
--- NOTE | 2017-07-11 17:43 | PN ---
Date/Time of Note Date/Time of Note DATE: 07/11/17 TIME: 17:42 Assessment/Plan VTE Prophylaxis VTE Prophylaxis Intervention: LMWH Lines/Catheters IV Catheter Type (from Nrs): Peripheral IV Urinary Cath still in place: No Assessment/Plan Chief Complaint/Hosp Course 1. Aphasia with right-sided weakness likely secondary to left MCA infarct MRI/MRA of the head is pending Neurology is following Carotid duplex wnl Echo shows CHF with an EF of 45%, no shunt was noted on bubble study continue rectal aspirin 300 mg until swallow documented A1c at 5.2 LDL at 132 PT eval Patient failed video swallow, n.p.o. for now will consider NG tube placement in the next 1-2 days IV fluids 2. CHF-newly diagnosed EF of 45% Cardiology consultation appreciated, will start beta-blockers and SAMARA inhibitor once able to tolerate p.o. meds 3. H/o hypertension-stable H/o hip replacement H/o cognitive impairment Prophylaxis: Lovenox Problems: Subjective 24 Hr Interval Summary Subjective hx not possible: pt non-verbal Exam/Review of Systems Vital Signs Vitals Vital Signs Date Time Temp Pulse Resp B/P Pulse Ox O2 Delivery O2 Flow Rate FiO2 07/11/17 16:02 97 07/11/17 15:49 98.0 20 141/69 98 07/08/17 19:30 Room Air Intake and Output 07/10/17 07/10/17 07/11/17 15:00 23:00 07:00 Intake Total 1200 ml 0 ml Balance 1200 ml 0 ml Exam Constitutional: non-verbal Respiratory: clear to auscultation Cardiovascular: regular rate and rhythm Gastrointestinal: soft, No distended Musculoskeletal: nl extremities to inspection Results Result Diagram: 07/11/1725 07/11/17 0625 Results 24 hrs Laboratory Tests Test 07/11/17 06:25 White Blood Count 11.6 H Red Blood Count 4.09 L Hemoglobin 12.6 Hematocrit 37.2 Mean Corpuscular Volume 91.0 Mean Corpuscular Hemoglobin 30.8 Mean Corpuscular Hemoglobin Concent 33.9 Red Cell Distribution Width 13.0 Platelet Count 293 Mean Platelet Volume 10.9 H Neutrophils % 79.4 H Lymphocytes % 10.9 L Monocytes % 8.6 Eosinophils % 0.6 Basophils % 0.1 Nucleated Red Blood Cells % 0.0 Neutrophils # 9.2 H Lymphocytes # 1.3 Monocytes # 1.0 H Eosinophils # 0.1 Basophils # 0.0 Nucleated Red Blood Cells # 0.0 Sodium Level 141 Potassium Level 3.1 L Chloride Level 105 Carbon Dioxide Level 29 Anion Gap 10 Blood Urea Nitrogen 12 Creatinine 0.87 Glucose Level 102 Calcium Level 9.0 Magnesium Level 1.6 L Medications Medications Current Medications Enoxaparin Sodium 40 mg 40 mg DAILY SC Last administered on 07/11/17 08:00; Admin Dose 40 MG; Start 07/09/17 at 09:00 Lactated Ringer's (Lr) 1,000 ml @ 75 mls/hr [id number] IV Last administered on 21:27; Admin Dose 75 MLS/HR; Start 07/09/17 at 15:00 Hydralazine HCl (Apresoline) 10 mg Q4H PRN IV ELEVATED BLOOD PRESSURE; Start 07/09/17 at 23:00 Aspirin 300 mg 300 mg DAILY [place] Last administered on 07/11/17 07:58; Admin Dose 300 MG; Start 07/10/17 at 16:30 Potassium Chloride (KCl 40 MEQ/250 ML NS) 250 ml @ 62.5 mls/hr Q4H IVPB Last administered on 07/11/17 11:00; Admin Dose 62.5 MLS/HR; Start 07/11/17 at 11: 00; Stop 07/11/17 at 18:59 CHARI MONTOYA Jul 11, 2017 17:43
--- NOTE | 2017-07-11 18:17 | RADRPT ---
PROCEDURE: MR Brain noncontrast. CLINICAL INDICATION: Left MCA stroke TECHNIQUE: Multiplanar multisequence noncontrast MRI of the brain was performed. COMPARISON: CT brain 07/08/2017 FINDINGS: Motion artifact limits evaluation. DWI hyperintensity with corresponding hyperintensity (no corresponding ADC hypointensity) on ADC map and with corresponding T2 / FLAIR hyperintensity in the left lentiform nucleus extending into the l eft carson radiata, with suggestion of minimal local mass effect, is compatible with late subacute i nfarct in the left middle cerebral artery vascular territory. A punctate focus of DWI and ADC hyperi ntensity in the left medial thalamus also likely represents late subacute infarct. There is no evide nce of significant hemorrhagic conversion on GRE images, although evaluation is somewhat confounded by physiologic GRE hypointensity within the basal ganglia. There is no evidence of acute intracrania l hemorrhage or midline shift. No extra-axial collection is seen. The ventricles are stable in size and configuration compared to prior CT brain 07/08/2017. There is mild to moderate diffuse cerebral volume loss. Patchy T2 / FLAIR hyperintensity scattered in the periventricular, deep, and subcortical cerebral white matter is nonspecific, but suggestive of moderate to severe chronic micro angiopathic change. Small chronic lacunar infarcts are noted within the bilateral basal ganglia. The basal cisterns are preserved. There is mild diffuse cerebellar volume loss. Mild T2 / FLAIR hyperin tensity within the central melissa is suggestive of mild microangiopathic change. The sella, parasellar , and suprasellar regions are grossly unremarkable. The orbits are grossly unremarkable. There is mi ld mucosal thickening in the ethmoid sinuses bilaterally. There is severe mucosal thickening within the left maxillary sinus. No definite air-fluid levels are seen. No definite mastoid effusion is not ed. No destructive osseous lesion is identified. IMPRESSION: 1. Late subacute infarcts in the left lentiform nucleus extending into the left carson radiata. No d efinitive evidence of hemorrhagic conversion. No midline shift. 2. Punctate likely late subacute infarct in the left medial thalamus. 3. Evidence of moderate to severe chronic microangiopathic cerebral white matter change. Evidence of mild microangiopathic change in the central melissa. 4. Small chronic lacunar infarcts in the bilateral basal ganglia. 5. Mild to moderate diffuse cerebral volume loss and mild diffuse cerebellar volume loss. 6. Extensive mucosal thickening in the left maxillary sinus and mild mucosal thickening in the ethmo id sinuses bilaterally. No air-fluid levels to suggest acute sinusitis. RPTAT: HRC Giselle Lewis Physician Date Time Electronically viewed and signed by Giselle Lewis, Physician on 07/11/2017 18:17 RC/
--- NOTE | 2017-07-11 18:40 | RADRPT ---
PROCEDURE: MRA Brain without contrast. CLINICAL INDICATION: Stroke, left middle cerebral artery distribution. TECHNIQUE: MR angiography of the brain was performed without intravenous contrast. Multiplanar re constructions, three-dimensional reconstructions, as well as maximal intensity projection images are produced and reviewed. COMPARISON: CT 07/08/2017 FINDINGS: Internal carotid arteries: 30 - 50% stenosis of the cavernous segment of the right internal carotid artery. Less than 25% stenosis of the supraclinoid segment of the right internal carotid artery. Minimal irregularities of the left internal carotid artery. Anterior cerebral arteries: Codominant A1 segments. Greater than 50% stenosis of the origin of the left A1 segment. Anterior communicating artery is visualized. Visualized A2 and A3 distribution of the anterior cerebral arteries are patent. Middle cerebral arteries: Both middle cerebral arteries as well as there branch vessels are patent and symmetric in appearance . Small right and moderate sized left posterior communicating arteries are present. Vertebral - basilar system: Hypoplastic appearing variant of the intradural segment of the right vertebral artery with superimpo sed severe stenoses. Dominant left vertebral artery demonstrates minimal irregularities. Basilar artery is patent. Posterior cerebral arteries: Patent bilaterally. Left P1 segment is developmentally hypoplastic. IMPRESSION: 30 - 50% stenosis of the cavernous segment of the right internal carotid artery. Less than 25% stenosis of the supraclinoid segment of the right internal carotid artery. Codominant A1 segments. Greater than 50% stenosis of the origin of the left A1 segment. Hypoplastic appearing variant of the intradural segment of the right vertebral artery with superimpo sed severe stenoses. CT angiography of the extracranial and intracranial circulation recommended for further evaluation. RPTAT: AADD .Stephen Crawford MD, Date Time Electronically viewed and signed by .Stephen Crawford MD, on 07/11/2017 18:40 .B/
[2017-07-11] MEDS: LACTATED RINGER'S 1,000 ML IV SCH (20:20)
[2017-07-12] VITALS (12 sets, daily range): BP systolic 130–195; BP diastolic 70–97; PULSE 85–112; RESP 16–22
[2017-07-12] MEDS: LACTATED RINGER'S 1,000 ML IV SCH ×3 (00:13→23:21)
[2017-07-12 06:47] LABS: BASOPHILS % 0.1 % (0.0-2.0); EOSINOPHILS # 0.1 10^3/ul (0.0-0.5); EOSINOPHILS % 1.2 % (0.0-7.0); HEMATOCRIT 37.7 % (37.0-47.0); HEMOGLOBIN 12.4 g/dl (12.0-16.0); LYMPHOCYTES # 1.4 10^3/ul (0.8-2.9); LYMPHOCYTES % 12.6 % (15.0-51.0); MEAN CORPUSCULAR HEMOGLOBIN 30.5 pg (29.0-33.0); MEAN CORPUSCULAR HGB CONC 32.9 g/dl (32.0-37.0); MEAN CORPUSCULAR VOLUME 92.9 fl (82.0-101.0); MEAN PLATELET VOLUME 10.8 fl (7.4-10.4); MONOCYTE # 0.8 10^3/ul (0.3-0.9); MONOCYTES % 7.4 % (0.0-11.0); NEUTROPHIL # 8.8 10^3/ul (1.6-7.5); NEUTROPHILS % 78.1 % (39.0-77.0); PLATELET COUNT 306 10^3/UL (140-415); RED BLOOD COUNT 4.06 10^6/ul (4.20-5.40); RED CELL DISTRIBUTION WIDTH 12.9 % (11.5-14.5); WHITE BLOOD COUNT 11.2 10^3/ul (4.8-10.8)
[2017-07-12 07:15] LABS: CALCIUM 8.9 mg/dl (8.4-10.2); CREATININE 0.79 mg/dl (0.44-1.00); MAGNESIUM 2.2 mg/dl (1.7-2.5); PHOSPHORUS 3.7 mg/dl (2.5-4.9); POTASSIUM 4.2 mmol/L (3.5-5.1)
--- NOTE | 2017-07-12 08:33 | CONS ---
Date/Time of Note Date/Time of Note DATE: 07/12/17 TIME: 08:32 Consult Date/Type/Reason Admit Date/Time Jul 08, 2017 at 15:12 Initial Consult Date 07/10/17 Type of Consultation: cardiology Ordering Provider: CHARI MONTOYA Subjective cardiology follow up note: S: d/w staff and rhythm was reviewed. pt remains in NSR/ sinus tachycardia. pt remains nonverbal. she is more wake however. O: General: no acute distress HEENT: NC/AT. pupils are equal. round. NECK: NO JVD. no stridor. CV: RRR. systolic murmur; no gallop or rubs. PULM: no wheezing or rhonchi. GI: SOFT, NT, ND, no rebound or guarding Extremity: trace B/L LE edema. no clubbing. neuro: opens her eyes but does not verbalize she is not able to move her right side. Psych: calm now rectal: deferred ECG reviewed; NSR ant infarct age undetermined. ECHO : 1. Normal left ventricular cavity size. Normal left ventricular wall thickness. Mild left ventricular systolic dysfunction. Ejection fraction is visually estimated at 45 %. Severe hypokinesis of the mid-distal septum, mid-distal inferior wall, and apex. 2. No significant valvular stenosis or regurgitation seen. 3. Estimated peak PA systolic pressure 40 mmHg plus RA pressure. CT head results reviewed. CXR: no ACUTE cardiopulm disease. Objective Vital Signs Date Time Temp Pulse Resp B/P Pulse Ox O2 Delivery O2 Flow Rate FiO2 07/12/17 07:34 98.3 100 22 170/77 100 07/08/17 19:30 Room Air Intake and Output 07/11/17 07/11/17 07/12/17 15:00 23:00 07:00 Intake Total 800 ml 0 ml Output Total 275 ml Balance -275 ml 800 ml 0 ml Results/Medications Result Diagram: 07/12/17 0607/12/17 0606 Results 24 hrs Laboratory Tests Test 07/12/17 06:06 White Blood Count 11.2 H Red Blood Count 4.06 L Hemoglobin 12.4 Hematocrit 37.7 Mean Corpuscular Volume 92.9 Mean Corpuscular Hemoglobin 30.5 Mean Corpuscular Hemoglobin Concent 32.9 Red Cell Distribution Width 12.9 Platelet Count 306 Mean Platelet Volume 10.8 H Neutrophils % 78.1 H Lymphocytes % 12.6 L Monocytes % 7.4 Eosinophils % 1.2 Basophils % 0.1 Nucleated Red Blood Cells % 0.0 Neutrophils # 8.8 H Lymphocytes # 1.4 Monocytes # 0.8 Eosinophils # 0.1 Basophils # 0.0 Nucleated Red Blood Cells # 0.0 Sodium Level 144 Potassium Level 4.2 Chloride Level 111 H Carbon Dioxide Level 26 Anion Gap 11 Blood Urea Nitrogen 14 Creatinine 0.79 Glucose Level 94 Calcium Level 8.9 Phosphorus Level 3.7 Magnesium Level 2.2 Medications Current Medications Enoxaparin Sodium 40 mg 40 mg DAILY [place] Last administered on 07/11/17 08:00; Admin Dose 40 MG; Start 07/09/17 at 09:00 Lactated Ringer's (Lr) 1,000 ml @ 75 mls/hr [id number] IV Last administered on 00:13; Admin Dose 75 MLS/HR; Start 07/09/17 at 15:00 Hydralazine HCl (Apresoline) 10 mg Q4H PRN IV ELEVATED BLOOD PRESSURE; Start 07/09/17 at 23:00 Aspirin (Aspirin) 300 mg DAILY [place] Last administered on 07/11/17 07:58; Admin Dose 300 MG; Start 07/10/17 at 16:30 Assessment/Plan Chief Complaint/Hosp Course 1. acute CVA 2. MILD cardiomyopathy 3. 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 HTN 5. Dyslipidemia 6./ dysphagia 7. aphasia and right sided weakness ASA for now rectally. pt is NPO FOR NOW start stain once able to tolerate po meds We will slowly introduce carvedilol and ARB/SAMARA inhibitors po once patient is able to tolerate p.o. medications. Diuresis will be given as needed. monitor on the telemetry to rule out evidence of paroxysmal atrial fibrillation Thank you for his referral. I will continue to follow along with you prn . BIBI MOORE MD [facility] Problems: BIBI MOORE MD Jul 12, 2017 08:33
[2017-07-12] MEDS: ENOXAPARIN 40 MG/0.4 ML SYG SC SCH (11:29)
--- NOTE | 2017-07-12 13:50 | CONS ---
Date/Time of Note Date/Time of Note DATE: 07/12/17 TIME: 13:48 Consult Date/Type/Reason Admit Date/Time Jul 08, 2017 at 15:12 Initial Consult Date 07/09/17 Type of Consultation: Neurology Reason for Consultation CVA Ordering Provider: CHARI MONTOYA Subjective remains aphasic no improvement failed swallow Objective Vital Signs Date Time Temp Pulse Resp B/P Pulse Ox O2 Delivery O2 Flow Rate FiO2 07/12/17 12:12 97.5 110 18 130/94 96 07/08/17 19:30 Room Air Intake and Output 07/11/17 07/11/17 07/12/17 14:59 22:59 06:59 Intake Total 800 ml 0 ml Output Total 275 ml Balance -275 ml 800 ml 0 ml Exam awake alert non verbal left gaze preference unable to follow commands CN: TAMRA blink to threat, right facial droop Motor: right plegic, left arm and leg w/d to pain Results/Medications Result Diagram: 07/12/17 0606 07/12/17 0606 Results 24 hrs Laboratory Tests Test 07/12/17 06:06 White Blood Count 11.2 H Red Blood Count 4.06 L Hemoglobin 12.4 Hematocrit 37.7 Mean Corpuscular Volume 92.9 Mean Corpuscular Hemoglobin 30.5 Mean Corpuscular Hemoglobin Concent 32.9 Red Cell Distribution Width 12.9 Platelet Count 306 Mean Platelet Volume 10.8 H Neutrophils % 78.1 H Lymphocytes % 12.6 L Monocytes % 7.4 Eosinophils % 1.2 Basophils % 0.1 Nucleated Red Blood Cells % 0.0 Neutrophils # 8.8 H Lymphocytes # 1.4 Monocytes # 0.8 Eosinophils # 0.1 Basophils # 0.0 Nucleated Red Blood Cells # 0.0 Sodium Level 144 Potassium Level 4.2 Chloride Level 111 H Carbon Dioxide Level 26 Anion Gap 11 Blood Urea Nitrogen 14 Creatinine 0.79 Glucose Level 94 Calcium Level 8.9 Phosphorus Level 3.7 Magnesium Level 2.2 Medications Current Medications Enoxaparin Sodium 40 mg 40 mg DAILY [place] Last administered on 07/12/17 11:29; Admin Dose 40 MG; Start 07/09/17 at 09:00 Lactated Ringer's (Lr) 1,000 ml @ 75 mls/hr [id number] IV Last administered on 00:13; Admin Dose 75 MLS/HR; Start 07/09/17 at 15:00 Hydralazine HCl (Apresoline) 10 mg Q4H PRN IV ELEVATED BLOOD PRESSURE; Start 07/09/17 at 23:00 Aspirin (Aspirin) 300 mg DAILY [place] Last administered on 07/11/17t 07:58; Admin Dose 300 MG; Start 07/10/17 at 16:30 Assessment/Plan Chief Complaint/Hosp Course 71 yo female with unclear hx, admitted with L MCA syndrome out of window for thrombolytics eval by tele neuro not a candidate for intervention. Recommend MRI Brain shows Left MCA territory infarction, medial left thalamus infarction likely embolic etiology ECHO EF 45% on tele to monitor for afib being seen by ardiology SBP <140/90 continue rectal aspirin 300 mg until swallow documented LLD> 132 will need high intensity statin Lipitor 80 mg qhs DVT ppx will likely require PEG, SNF placement Problems: JUDITH RAHMAN MD Jul 12, 2017 13:50
[2017-07-12] MEDS: ASPIRIN 300 MG SUPP PR SCH (14:06)
--- NOTE | 2017-07-12 16:21 | PN ---
Date/Time of Note Date/Time of Note DATE: 07/12/17 TIME: 16:15 Assessment/Plan VTE Prophylaxis VTE Prophylaxis Intervention: LMWH Lines/Catheters IV [facility] Peripheral IV Urinary Cath still in place: No Assessment/Plan Chief Complaint/Hosp Course 1. Aphasia with right-sided weakness likely secondary to left MCA infarct MRI confirms CVA on the left side MRA does demonstrate atherosclerosis within the intracranial vessels Neurology is following Carotid duplex wnl Echo shows CHF with an EF of 45%, no shunt was noted on bubble study continue rectal aspirin 300 mg until swallow documented A1c at 5.2 LDL at 132 PT eval Patient failed video swallow, will need a PEG as condition continues to be poor , I discussed with patient's closest relative who is Lucie at [phone], patient is her 's cousin, patient has no children or IV fluids 2. CHF-newly diagnosed EF of 45% Cardiology consultation appreciated, will start beta-blockers and SAMARA inhibitor once able to tolerate p.o. meds 3. H/o hypertension-stable H/o hip replacement H/o cognitive impairment Prophylaxis: Lovenox Problems: Subjective 24 Hr Interval Summary Subjective hx not possible: pt non-verbal Exam/Review of Systems Vital Signs Vitals Vital Signs Date Time Temp Pulse Resp B/P Pulse Ox O2 Delivery O2 Flow Rate FiO2 07/12/17 15:35 99.1 100 16 148/81 97 07/08/17 19:30 Room Air Intake and Output 07/11/17 07/11/17 07/12/17 15:00 23:00 07:00 Intake Total 800 ml 0 ml Output Total 275 ml Balance -275 ml 800 ml 0 ml Exam Constitutional: non-verbal Respiratory: clear to auscultation Cardiovascular: regular rate and rhythm Gastrointestinal: soft, No distended Musculoskeletal: nl extremities to inspection Results Result Diagram: 07/12/17 0606 07/12/17 0606 Results 24 hrs Laboratory Tests Test 07/12/17 06:06 White Blood Count 11.2 H Red Blood Count 4.06 L Hemoglobin 12.4 Hematocrit 37.7 Mean Corpuscular Volume 92.9 Mean Corpuscular Hemoglobin 30.5 Mean Corpuscular Hemoglobin Concent 32.9 Red Cell Distribution Width 12.9 Platelet Count 306 Mean Platelet Volume 10.8 H Neutrophils % 78.1 H Lymphocytes % 12.6 L Monocytes % 7.4 Eosinophils % 1.2 Basophils % 0.1 Nucleated Red Blood Cells % 0.0 Neutrophils # 8.8 H Lymphocytes # 1.4 Monocytes # 0.8 Eosinophils # 0.1 Basophils # 0.0 Nucleated Red Blood Cells # 0.0 Sodium Level 144 Potassium Level 4.2 Chloride Level 111 H Carbon Dioxide Level 26 Anion Gap 11 Blood Urea Nitrogen 14 Creatinine 0.79 Glucose Level 94 Calcium Level 8.9 Phosphorus Level 3.7 Magnesium Level 2.2 Medications Medications Current Medications Enoxaparin Sodium 40 mg 40 mg DAILY [place] Last administered on 07/12/17 11:29; Admin Dose 40 MG; Start 07/09/17 at 09:00 Lactated Ringer's (Lr) 1,000 ml @ 75 mls/hr [id number] IV Last administered on 14:33; Admin Dose 75 MLS/HR; Start 07/09/17 at 15:00 Hydralazine HCl (Apresoline) 10 mg Q4H PRN IV ELEVATED BLOOD PRESSURE; Start 07/09/17 at 23:00 Aspirin (Aspirin) 300 mg DAILY [place] Last administered on 07/12/17 14:06; Admin Dose 300 MG; Start 07/10/17 at 16:30 CHARI MONTOYA Jul 12, 2017 16:21
--- NOTE | 2017-07-12 17:03 | CONS ---
Date/Time of Note Date/Time of Note DATE: 07/12/17 TIME: 16:35 Assessment/Plan Assessment/Plan Chief Complaint/Hosp Course Summary Assessment and Plan: Assessment: Dysphagia secondary to CVA CVA Plan: Will need PEG placement. Pt without DPOA will need to be assessed by bioethics Insert NGT- start tube feeding, increase as tolerated q12 hrs Please notify GI when consent is signed and patient is ready for PEG placement Patient seen in collaboration with Dr. Templeton Chief Complaint/Reason for Visit: Dysphagia History of Present Illness: This is a 71 year old non-verbal female with unknown past medical history, presented to the ER with with symptoms of R hemiplegia and aphasia, imaging reveled CVA. Gi has been consulted for dysphagia, pt has failed swallow evaluation and will need PEG placement. However, she does not family or DPOA to sign consent for her. Kary Jose is labeled next of kin but doesn't not appear to have authority to sign consents. At this time will insert NGT and start tube feeding with the plan to increase as tolerated. Please notify GI when patient is ready to move forward with PEG placement. Past Medical History: unknown Allergies: No know allergies PHYSICAL EXAMINATION: GENERAL: Well developed, well nourished, alert, unable to make needs known, no acute distress SKIN: No lesions, no stigmata chronic liver disease, no evidence of bleeding diathesis LYMPHATIC: No palpable lymphadenopathy. HEAD: Normocephalic, atraumatic, no tenderness. EYES: Pupils equal reactive to light and accommodation, full extraocular movements, sclera clear, non-icteric, no discharge. EARS/NOSE AND THROAT: Ears normal, nose normal, oropharynx normal, NECK: Supple, no masses, thyroid normal, CHEST: Inspection within normal limits. CARDIOVASCULAR: Heart: Regular rate and rhythm, RESPIRATORY: Lungs clear to auscultation GASTROINTESTINAL AND LIVER: Abdomen: Soft, non tenderness, non-distended, no hernias, no masses, no organomegaly, no ascites, no guarding, no rebound tenderness, normoactive bowel sounds. Rectal: Deferred. Problems: Consultation Date/Type/Reason Admit Date/Time Jul 08, 2017 at 15:12 Date of Consultation: Jul 12, 2017 Type of Consultation: GI Reason for Consultation Dysphagia Subjective hx not possible: pt non-verbal Past Medical History Medical History: other (unknown) Past Surgical History Past Surgical Hx: other (unknown) Social History Alcohol Use: other (unknown) Smoking Status: Unknown if ever smoked Drug Use: none, other (unknown) Exam/Review of Systems Vital Signs Vitals Vital Signs Date Time Temp Pulse Resp B/P Pulse Ox O2 Delivery O2 Flow Rate FiO2 07/12/17 15:35 99.1 100 16 148/81 97 07/08/17 19:30 Room Air Intake and Output 07/11/17 07/11/17 07/12/17 15:00 23:00 07:00 Intake Total 800 ml 0 ml Output Total 275 ml Balance -275 ml 800 ml 0 ml Results Result Diagram: 07/12/17 0606 07/12/17 0606 Results 24 hrs Laboratory Tests Test 07/12/17 06:06 White Blood Count 11.2 H Red Blood Count 4.06 L Hemoglobin 12.4 Hematocrit 37.7 Mean Corpuscular Volume 92.9 Mean Corpuscular Hemoglobin 30.5 Mean Corpuscular Hemoglobin Concent 32.9 Red Cell Distribution Width 12.9 Platelet Count 306 Mean Platelet Volume 10.8 H Neutrophils % 78.1 H Lymphocytes % 12.6 L Monocytes % 7.4 Eosinophils % 1.2 Basophils % 0.1 Nucleated Red Blood Cells % 0.0 Neutrophils # 8.8 H Lymphocytes # 1.4 Monocytes # 0.8 Eosinophils # 0.1 Basophils # 0.0 Nucleated Red Blood Cells # 0.0 Sodium Level 144 Potassium Level 4.2 Chloride Level 111 H Carbon Dioxide Level 26 Anion Gap 11 Blood Urea Nitrogen 14 Creatinine 0.79 Glucose Level 94 Calcium Level 8.9 Phosphorus Level 3.7 Magnesium Level 2.2 Medications Medications Current Medications Enoxaparin Sodium 40 mg 40 mg DAILY [place] Last administered on 07/12/17 11:29; Admin Dose 40 MG; Start 07/09/17 at 09:00 Lactated Ringer's (Lr) 1,000 ml @ 75 mls/hr [id number] IV Last administered on 14:33; Admin Dose 75 MLS/HR; Start 07/09/17 at 15:00 Hydralazine HCl (Apresoline) 10 mg Q4H PRN IV ELEVATED BLOOD PRESSURE; Start 07/09/17 at 23:00 Aspirin (Aspirin) 300 mg DAILY [place] Last administered on 11/22/17at 14:06; Admin Dose 300 MG; Start 07/10/17 at 16:30 Copies To: CC: SOTERO TEMPLETON MD [facility] Jul 12, 2017 16:54
[2017-07-12] MEDS: hydrALAzine 20 MG INJ IV PRN (20:13)
[2017-07-12] MEDS ORDERED: DILTIAZEM-D5W 125MG/125ML DRIP 125 ML IV SCH (21:30)
[2017-07-12] MEDS: DILTIAZEM-D5W 125MG/125ML DRIP 125 ML IV SCH (23:48)
[2017-07-13] VITALS (12 sets, daily range): BP systolic 128–169; BP diastolic 66–90; PULSE 71–111; RESP 16–22
--- NOTE | 2017-07-13 03:44 | RADRPT ---
PROCEDURE: XR Chest. CLINICAL INDICATION: Dyspnea. Nasogastric tube placement. TECHNIQUE: Portable single view of the chest COMPARISON: 07/08/2017 FINDINGS: Nasogastric tube has been placed and the courses at least in the mid stomach. Lung volumes are again reduced but no definite focal infiltrate, pleural effusion, or overt congestive heart failure is se en. Aortic calcification. Top normal heart size. IMPRESSION: New nasogastric tube with tip likely at least in the mid stomach. RPTAT: HLBE Vicki Navarro Physician Date Time Electronically viewed and signed by Vicki Navarro, Physician on 07/13/2017 03:44 LE/
[2017-07-13] MEDS: hydrALAzine 20 MG INJ IV PRN (03:56)
[2017-07-13] MEDS: DILTIAZEM-D5W 125MG/125ML DRIP 125 ML IV SCH (06:55)
[2017-07-13] MEDS: ENOXAPARIN 40 MG/0.4 ML SYG SC SCH (11:16)
--- NOTE | 2017-07-13 11:43 | PN ---
Date/Time of Note Date/Time of Note DATE: 07/13/17 TIME: 11:41 Assessment/Plan VTE Prophylaxis VTE Prophylaxis Intervention: LMWH Lines/Catheters IV Catheter Type (from [facility]): [place] Urinary Cath still in place: No Assessment/Plan Chief Complaint/Hosp Course 1. Aphasia with right-sided weakness likely secondary to left MCA infarct MRI confirms CVA on the left side MRA does demonstrate atherosclerosis within the intracranial vessels Neurology is following Carotid duplex wnl Echo shows CHF with an EF of 45%, no shunt was noted on bubble study continue rectal aspirin 300 mg until swallow documented A1c at 5.2 LDL at 132 PT eval Patient failed video swallow, will need a PEG as condition continues to be poor , I discussed with patient's closest friend who is Lucie at [phone], patient is her 's cousin, patient has no children or , because she is not a blood relative she cannot consent for the PEG and hence bioethics consult has been placed to obtain consent for PEG placement IV fluids 2. CHF-newly diagnosed EF of 45% Cardiology consultation appreciated, will start beta-blockers and SAMARA inhibitor once able to tolerate p.o. meds 3. H/o hypertension-stable H/o hip replacement H/o cognitive impairment Prophylaxis: Lovenox Problems: Subjective 24 Hr Interval Summary Subjective hx not possible: pt non-verbal Exam/Review of Systems Vital Signs Vitals Vital Signs Date Time Temp Pulse Resp B/P Pulse Ox O2 Delivery O2 Flow Rate FiO2 07/13/17 11:34 96.5 88 16 137/66 99 07/13/17 06:00 Nasal Cannula 2.0 Intake and Output 07/12/17 07/12/17 07/13/17 14:59 22:59 06:59 Intake Total 20 ml Balance 20 ml Exam Constitutional: non-verbal Respiratory: clear to auscultation Cardiovascular: regular rate and rhythm Gastrointestinal: soft, No distended Musculoskeletal: nl extremities to inspection Results Result Diagram: 07/12/1760507/12/17605 Medications Medications Current Medications Enoxaparin Sodium 40 mg 40 mg DAILY SC Last administered on 07/13/17t 11:16; Admin Dose 40 MG; Start 07/09/17 at 09:00 Lactated Ringer's (Lr) 1,000 ml @ 75 mls/hr [id number] IV Last administered on 23:21; Admin Dose 75 MLS/HR; Start 07/09/17 at 15:00 Hydralazine HCl (Apresoline) 10 mg Q4H PRN IV ELEVATED BLOOD PRESSURE Last administered on 07/13/17 03:56; Admin Dose 10 MG; Start 07/09/17 at 23:00 Aspirin 300 mg 300 mg DAILY [place] Last administered on 07/12/17 14:06; Admin Dose 300 MG; Start 07/10/17 at 16:30 Diltiazem HCl (Cardizem-D5W 125 Mg/125 ml Drip) 125 ml @ 5 mls/hr TITRATE IV Last administered on 07/13/17 06:55; Admin Dose 12 MLS/HR; Start 07/13/17 at 00:00 CHARI MONTOYA Jul 13, 2017 11:43
[2017-07-13] MEDS: ASPIRIN 300 MG SUPP PR SCH (12:38)
[2017-07-13] MEDS: LACTATED RINGER'S 1,000 ML IV SCH (12:38)
[2017-07-13] MEDS ORDERED: METOPROLOL 25 MG TAB NGT SCH (13:00)
[2017-07-13] MEDS ORDERED: METOPROLOL 50 MG TAB NGT ONE (14:20)
--- NOTE | 2017-07-13 14:25 | CONS ---
Date/Time of Note Date/Time of Note DATE: 07/13/17 TIME: 14:21 Assessment/Plan Assessment/Plan Additional Assessment/Plan Acute CVA Tachycardia concerning for SVT Cardiomyopathy with ejection fraction 45% Hypertension -Patient with tachycardia overnight in the 160s which appears as supraventricular tachycardia. Heart rate improved with IV Cardizem. Would start Lopressor 50 mg p.o. twice daily and continue as heart rate and blood pressure permits, continue telemetry monitoring. Titrate off IV Cardizem as tolerated, start statin therapy if no contraindication. Consultation Date/Type/Reason Admit Date/Time Jul 08, 2017 at 15:12 Initial Consult Date 07/12/17 Type of Consultation: cv Referring Provider: CHARI MONTOYA 24 HR Interval Summary Free Text/Dictation Patient with rapid heart rates overnight. Patient unable to give history at the current time Exam/Review of Systems Vital Signs Vitals Vital Signs Date Time Temp Pulse Resp B/P Pulse Ox O2 Delivery O2 Flow Rate FiO2 07/13/17 12:05 92 07/13/17 11:34 96.5 16 137/66 99 07/13/17 06:00 Nasal Cannula 2.0 Intake and Output 07/12/17 07/12/17 07/13/17 15:00 23:00 07:00 Intake Total 20 ml Balance 20 ml Exam Awake, looks me when name is called but not following commands, aphasic Head: normocephalic Respiratory: other (Coarse breath sounds bilaterally, no wheezing) Cardiovascular: other (S1-S2 heard), regular rate and rhythm Gastrointestinal: bowel sounds, non-tender, soft Extremities: edema (Trace) Results Result Diagram: 07/12/17 0606 07/12/17 0606 Medications Medications Current Medications Enoxaparin Sodium 40 mg 40 mg DAILY SC Last administered on 07/13/17 11:16; Admin Dose 40 MG; Start 07/09/17 at 09:00 Lactated Ringer's (Lr) 1,000 ml @ 75 mls/hr [id number] IV Last administered on 12:38; Admin Dose 75 MLS/HR; Start 07/09/17 at 15:00 Hydralazine HCl 10 mg 10 mg Q4H PRN IV ELEVATED BLOOD PRESSURE Last administered on 07/13/17 03:56; Admin Dose 10 MG; Start 07/09/17 at 23:00 Diltiazem HCl (Cardizem-D5W 125 Mg/125 ml Drip) 125 ml @ 5 mls/hr TITRATE IV Last administered on 07/13/17t 06:55; Admin Dose 12 MLS/HR; Start 07/13/17 at 00:00 Metoprolol Tartrate (Lopressor) 25 mg BID NGT ; Start 07/13/17 at 13:00 Aspirin (Aspirin) 81 mg DAILY NGT ; Start 07/14/17 at 09:00 Vinicius Tello DO Jul 13, 2017 14:25
[2017-07-13] MEDS: ATORVASTATIN 80 MG TAB NGT SCH (20:24)
[2017-07-13] MEDS: METOPROLOL 50 MG TAB NGT SCH (20:24)
[2017-07-14] VITALS (17 sets, daily range): BP systolic 135–168; BP diastolic 70–88; PULSE 69–140; RESP 16–20
[2017-07-14] MEDS: LACTATED RINGER'S 1,000 ML IV SCH ×2 (01:48→15:00)
[2017-07-14] MEDS: ASPIRIN 81 MG TAB NGT SCH (09:35)
[2017-07-14] MEDS: METOPROLOL 50 MG TAB NGT SCH (09:35)
[2017-07-14] MEDS: ENOXAPARIN 40 MG/0.4 ML SYG SC SCH (09:36)
--- NOTE | 2017-07-14 12:19 | PN ---
Date/Time of Note Date/Time of Note DATE: 07/14/17 TIME: 12:17 Assessment/Plan VTE Prophylaxis VTE Prophylaxis Intervention: LMWH Lines/Catheters IV [facility] Type (from [facility] [place] Urinary Cath still in place: No Assessment/Plan Chief Complaint/Hosp Course 1. Aphasia with right-sided weakness likely secondary to left MCA infarct MRI confirms CVA on the left side MRA does demonstrate atherosclerosis within the intracranial vessels Neurology is following Carotid duplex wnl Echo shows CHF with an EF of 45%, no shunt was noted on bubble study continue rectal aspirin 300 mg until swallow documented A1c at 5.2 LDL at 132 PT eval Patient failed video swallow, will need a PEG as condition continues to be poor , I discussed with patient's closest friend who is Lucie at [phone], patient is her 's cousin, patient has no children or , because she is not a blood relative she cannot consent for the PEG and hence bioethics consult has been placed to obtain consent for PEG placement NG tube has been placed, continue tube feeds IV fluids 2. CHF-newly diagnosed EF of 45% Cardiology consultation appreciated, started beta-blockers 3. H/o hypertension-stable H/o hip replacement H/o cognitive impairment Prophylaxis: Lovenox Problems: Subjective 24 Hr Interval Summary Subjective hx not possible: pt non-verbal Exam/Review of Systems Vital Signs Vitals Vital Signs Date Time Temp Pulse Resp B/P Pulse Ox O2 Delivery O2 Flow Rate FiO2 07/14/17 12:07 72 07/14/17 10:57 98.5 17 141/81 95 07/14/17 10:22 3.0 07/14/17 06:00 Nasal Cannula Intake and Output 07/13/17 07/13/17 07/14/17 15:00 23:00 07:00 Intake Total 300 ml 400 ml Balance 300 ml 400 ml Exam Constitutional: non-verbal Respiratory: clear to auscultation Cardiovascular: regular rate and rhythm Gastrointestinal: soft, No distended Musculoskeletal: nl extremities to inspection Results Result Diagram: 07/12/1760507/12/17605 Medications Medications Current Medications Enoxaparin Sodium 40 mg 40 mg DAILY SC Last administered on 07/14/17t 09:36; Admin Dose 40 MG; Start 07/09/17 at 09:00 Lactated Ringer's (Lr) 1,000 ml @ 75 mls/hr [id number] IV Last administered on 01:48; Admin Dose 75 MLS/HR; Start 07/09/17 at 15:00 Hydralazine HCl 10 mg 10 mg Q4H PRN IV ELEVATED BLOOD PRESSURE Last administered on 07/13/17 03:56; Admin Dose 10 MG; Start 07/09/17 at 23:00 Diltiazem HCl (Cardizem-D5W 125 Mg/125 ml Drip) 125 ml @ 5 mls/hr TITRATE IV Last administered on 07/13/17 06:55; Admin Dose 12 MLS/HR; Start 07/13/17 at 00:00 Aspirin (Aspirin) 81 mg DAILY NGT Last administered on 07/14/17 09:35; Admin Dose 81 MG; Start 07/14/17 at 09:00 Metoprolol Tartrate (Lopressor) 50 mg BID NGT Last administered on 07/14/17 09:35; Admin Dose 50 MG; Start 07/13/17 at 21:00 Atorvastatin Calcium (Lipitor) 80 mg HS NGT Last administered on 07/13/17 20: 24; Admin Dose 80 MG; Start 07/13/17 at 21:00 CHARI MONTOYA Jul 14, 2017 12:19
--- NOTE | 2017-07-14 16:06 | CONS ---
Date/Time of Note Date/Time of Note DATE: 07/14/17 TIME: 16:03 Consult Date/Type/Reason Admit Date/Time Jul 08, 2017 at 15:12 Initial Consult Date 07/10/17 Type of Consultation: cardiology Ordering Provider: CHARI MONTOYA Subjective cardiology follow up note: S: d/w staff and rhythm was reviewed. pt remains in NSR one episode of SVT/ sinus tach on 07/12/17 but no more episode of SVT overnight . pt remains nonverbal. she is more wake however. s/p NG tube now O: General: no acute distress HEENT: NC/AT. pupils are equal. round. s/p NG tube NECK: NO JVD. no stridor. CV: RRR. systolic murmur; no gallop or rubs. PULM: no wheezing or rhonchi. GI: SOFT, NT, ND, no rebound or guarding Extremity: trace B/L LE edema. no clubbing. neuro: opens her eyes but does not verbalize she is not able to move her right side. Psych: calm now rectal: deferred ECG reviewed; NSR ant infarct age undetermined. ECHO : 1. Normal left ventricular cavity size. Normal left ventricular wall thickness. Mild left ventricular systolic dysfunction. Ejection fraction is visually estimated at 45 %. Severe hypokinesis of the mid-distal septum, mid-distal inferior wall, and apex. 2. No significant valvular stenosis or regurgitation seen. 3. Estimated peak PA systolic pressure 40 mmHg plus RA pressure. CT head results reviewed. CXR: no ACUTE cardiopulm disease. Objective Vital Signs Date Time Temp Pulse Resp B/P Pulse Ox O2 Delivery O2 Flow Rate FiO2 07/14/17 14:59 98.5 100 18 168/88 95 07/14/17 10:22 3.0 07/14/17 08:30 Nasal Cannula Intake and Output 07/13/17 07/13/17 07/14/17 15:00 23:00 07:00 Intake Total 300 ml 400 ml Balance 300 ml 400 ml Results/Medications Result Diagram: 07/12/1760507/12/17605 Medications Current Medications Enoxaparin Sodium 40 mg 40 mg DAILY SC Last administered on 07/14/17t 09:36; Admin Dose 40 MG; Start 07/09/17 at 09:00 Lactated Ringer's (Lr) 1,000 ml @ 75 mls/hr [id number] IV Last administered on 01:48; Admin Dose 75 MLS/HR; Start 07/09/17 at 15:00 Hydralazine HCl 10 mg 10 mg Q4H PRN IV ELEVATED BLOOD PRESSURE Last administered on 07/13/17 03:56; Admin Dose 10 MG; Start 07/09/17 at 23:00 Diltiazem HCl (Cardizem-D5W 125 Mg/125 ml Drip) 125 ml @ 5 mls/hr TITRATE IV Last administered on 07/13/17 06:55; Admin Dose 12 MLS/HR; Start 07/13/17 at 00:00 Aspirin (Aspirin) 81 mg DAILY NGT Last administered on 07/14/17 09:35; Admin Dose 81 MG; Start 07/14/17 at 09:00 Metoprolol Tartrate (Lopressor) 50 mg BID NGT Last administered on 07/14/17 09:35; Admin Dose 50 MG; Start 07/13/17 at 21:00 Atorvastatin Calcium (Lipitor) 80 mg HS NGT Last administered on 07/13/17 20: 24; Admin Dose 80 MG; Start 07/13/17 at 21:00 Assessment/Plan Chief Complaint/Hosp Course 1. acute CVA 2. MILD cardiomyopathy 3. abnormal ECG and echo c/w CAD/ [place] 4. HTN 5. Dyslipidemia 6./ dysphagia 7. aphasia and right sided weakness 8. episode of SVT vs sinus tachy. ASA cont betablocker and statin I will change metoprolol to coreg given her cardiomyopathy/ We will slowly introduce ARB/SAMARA inhibitors Diuresis will be given as needed base on;ly. Thank you for his referral. I will continue to follow along with you prn . BIBI MOORE MD [facility] Problems: BIBI MOORE MD Jul 14, 2017 16:06
[2017-07-14] MEDS: hydrALAzine 20 MG INJ IV PRN (17:35)
[2017-07-14] MEDS: ATORVASTATIN 80 MG TAB NGT SCH (21:40)
[2017-07-15] VITALS (13 sets, daily range): BP systolic 111–149; BP diastolic 63–91; PULSE 75–90; RESP 16–20
[2017-07-15] MEDS: LACTATED RINGER'S 1,000 ML IV SCH ×2 (04:20→18:02)
[2017-07-15 07:54] LABS: ALBUMIN 2.7 g/dl (3.3-4.9); ALBUMIN/GLOBULIN RATIO 0.96; BILIRUBIN,INDIRECT 0.3 mg/dl (0-1.1); BILIRUBIN,TOTAL 0.3 mg/dl (0.2-1.3); CALCIUM 8.5 mg/dl (8.4-10.2); CREATININE 0.73 mg/dl (0.44-1.00); MAGNESIUM 1.7 mg/dl (1.7-2.5); POTASSIUM 3.3 mmol/L (3.5-5.1); TOTAL PROTEIN 5.5 g/dl (6.1-8.1)
[2017-07-15] MEDS: ASPIRIN 81 MG TAB NGT SCH (10:02)
[2017-07-15] MEDS: LISINOPRIL 5 MG TAB NGT SCH (10:02)
[2017-07-15] MEDS: ENOXAPARIN 40 MG/0.4 ML SYG SC SCH (10:49)
[2017-07-15] MEDS ORDERED: HYDROCODONE/APAP (5/325) TAB NGT PRN (11:00)
[2017-07-15] MEDS: morphine 2 MG INJ IV PRN (11:52)
--- NOTE | 2017-07-15 12:38 | PN ---
Date/Time of Note Date/Time of Note DATE: 07/15/17 TIME: 12:36 Assessment/Plan VTE Prophylaxis VTE Prophylaxis Intervention: LMWH Lines/Catheters IV Catheter Type (from [facility] [place]): Peripheral IV Urinary Cath still in place: No Assessment/Plan Chief Complaint/Hosp Course 1. Aphasia with right-sided weakness likely secondary to left MCA infarct MRI confirms CVA on the left side MRA does demonstrate atherosclerosis within the intracranial vessels Neurology is following Carotid duplex wnl Echo shows CHF with an EF of 45%, no shunt was noted on bubble study continue rectal aspirin 300 mg until swallow documented A1c at 5.2 LDL at 132 PT eval Patient failed video swallow, will need a PEG as condition continues to be poor , I discussed with patient's closest friend who is Lucie at [phone], patient is her 's cousin, patient has no children or , because she is not a blood relative she cannot consent for the PEG and hence bioethics consult has been placed to obtain consent for PEG placement NG tube has been placed, continue tube feeds IV fluids 2. CHF-newly diagnosed EF of 45% Cardiology consultation appreciated, continue SAMARA inhibitor and beta-jacky 3. Tachycardia-resolved Status post Cardizem Coreg 4. H/o hypertension-stable 5. H/o hip replacement 6. H/o cognitive impairment Prophylaxis: Lovenox Problems: Subjective 24 Hr Interval Summary Subjective hx not possible: pt non-verbal Exam/Review of Systems Vital Signs Vitals Vital Signs Date Time Temp Pulse Resp B/P Pulse Ox O2 Delivery O2 Flow Rate FiO2 07/15/17 12:01 84 07/15/17 11:32 99.4 20 138/82 100 07/15/17 08:30 Nasal Cannula 2.0 Intake and Output 07/14/17 07/14/17 07/15/17 15:00 23:00 07:00 Intake Total 400 ml 300 ml Balance 400 ml 300 ml Exam Constitutional: non-verbal Respiratory: clear to auscultation Cardiovascular: regular rate and rhythm Gastrointestinal: soft, No distended Musculoskeletal: nl extremities to inspection Results Result Diagram: 07/12/17 0606 07/15/17 0631 Results 24 hrs Laboratory Tests Test 07/15/17 06:31 Sodium Level 141 Potassium Level 3.3 L Chloride Level 105 Carbon Dioxide Level 30 Anion Gap 9 Blood Urea Nitrogen 14 Creatinine 0.73 Glucose Level 120 Calcium Level 8.5 Magnesium Level 1.7 Total Bilirubin 0.3 Direct Bilirubin 0.00 Indirect Bilirubin 0.3 Aspartate Amino Transf (AST/SGOT) 46 Alanine Aminotransferase (ALT/SGPT) 32 Alkaline Phosphatase 85 Total Protein 5.5 L Albumin 2.7 L Globulin 2.80 Albumin/Globulin Ratio 0.96 Medications Medications Current Medications Enoxaparin Sodium 40 mg 40 mg DAILY SC Last administered on 07/15/17 10:49; Admin Dose 40 MG; Start 07/09/17 at 09:00 Lactated Ringer's (Lr) 1,000 ml @ 75 mls/hr [id number] IV Last administered on 04:20; Admin Dose 75 MLS/HR; Start 07/09/17 at 15:00 Hydralazine HCl 10 mg 10 mg Q4H PRN IV ELEVATED BLOOD PRESSURE Last administered on 07/14/17 17:35; Admin Dose 10 MG; Start 07/09/17 at 23:00 Diltiazem HCl (Cardizem-D5W 125 Mg/125 ml Drip) 125 ml @ 5 mls/hr TITRATE IV Last administered on 07/13/17 06:55; Admin Dose 12 MLS/HR; Start 07/13/17 at 00:00 Aspirin (Aspirin) 81 mg DAILY NGT Last administered on 07/15/17 10:02; Admin Dose 81 MG; Start 07/14/17 at 09:00 Atorvastatin Calcium (Lipitor) 80 mg HS NGT Last administered on 07/14/17 21: 40; Admin Dose 80 MG; Start 07/13/17 at 21:00 Lisinopril (Zestril) 5 mg DAILY NGT Last administered on 07/15/17 10:02; Admin Dose 5 MG; Start 07/15/17 at 09:00 Carvedilol (Coreg) 6.25 mg BID NGT Last administered on 07/15/17 10:02; Admin Dose 6.25 MG; Start 07/14/17 at 21:00 Acetaminophen/ Hydrocodone Bitart ([place] (5/325)) 1 tab Q4H PRN NGT MODERATE PAIN LEVEL 4-6; Start 07/15/17 at 11:00 Morphine Sulfate (morphine) 2 mg Q4H PRN IV PAIN LEVEL 4-7 Last administered on 11/25/17at 11:52; Admin Dose 2 MG; Start 07/15/17 at 11:00 CHARI MONTOYA Jul 15, 2017 12:38
[2017-07-15] MEDS ORDERED: POTASSIUM CHLORIDE 250 ML IVPB ONE (13:00)
[2017-07-15] MEDS: ATORVASTATIN 80 MG TAB NGT SCH (20:53)
[2017-07-16] VITALS (12 sets, daily range): BP systolic 140–179; BP diastolic 74–92; PULSE 69–93; RESP 18–24
[2017-07-16 07:02] LABS: CALCIUM 8.7 mg/dl (8.4-10.2); CREATININE 0.72 mg/dl (0.44-1.00); MAGNESIUM 1.7 mg/dl (1.7-2.5); POTASSIUM 3.8 mmol/L (3.5-5.1)
[2017-07-16] MEDS: ASPIRIN 81 MG TAB NGT SCH (08:51)
[2017-07-16] MEDS: LISINOPRIL 5 MG TAB NGT SCH (08:53)
[2017-07-16] MEDS: ENOXAPARIN 40 MG/0.4 ML SYG SC SCH (09:02)
[2017-07-16] MEDS: LACTATED RINGER'S 1,000 ML IV SCH ×2 (09:04→20:29)
--- NOTE | 2017-07-16 15:16 | PN ---
Date/Time of Note Date/Time of Note DATE: 07/16/17 TIME: 15:15 Assessment/Plan VTE Prophylaxis VTE Prophylaxis Intervention: LMWH Lines/Catheters IV Catheter Type (from Nrs): Peripheral IV Assessment/Plan Chief Complaint/Hosp Course 1. Aphasia with right-sided weakness likely secondary to left MCA infarct MRI confirms CVA on the left side MRA does demonstrate atherosclerosis within the intracranial vessels Neurology is following Carotid duplex wnl Echo shows CHF with an EF of 45%, no shunt was noted on bubble study continue rectal aspirin 300 mg until swallow documented A1c at 5.2 LDL at 132 PT eval Patient failed video swallow, will need a PEG as condition continues to be poor , I discussed with patient's closest friend who is Lucie at [phone], patient is her 's cousin, patient has no children or , because she is not a blood relative she cannot consent for the PEG and hence bioethics consult has been placed to obtain consent for PEG placement NG tube has been placed, continue tube feeds IV fluids 2. CHF-newly diagnosed EF of 45% Cardiology consultation appreciated, continue SAMARA inhibitor and beta-jacky 3. Tachycardia-resolved Status post Cardizem Coreg 4. H/o hypertension-stable 5. H/o hip replacement 6. H/o cognitive impairment Prophylaxis: Lovenox Problems: Subjective 24 Hr Interval Summary Subjective hx not possible: pt non-verbal Exam/Review of Systems Vital Signs Vitals Vital Signs Date Time Temp Pulse Resp B/P Pulse Ox O2 Delivery O2 Flow Rate FiO2 07/16/17 12:18 87 07/16/17 11:32 98.5 20 140/75 100 07/16/17 01:21 2.0 07/15/17 20:00 Nasal Cannula Intake and Output 07/15/17 07/15/17 07/16/17 15:00 23:00 07:00 Intake Total 700 ml 630 ml Output Total 100 ml 1500 ml Balance 600 ml -870 ml Exam Constitutional: non-verbal Respiratory: clear to auscultation Cardiovascular: regular rate and rhythm Gastrointestinal: soft, No distended Musculoskeletal: nl extremities to inspection Results Result Diagram: 07/12/17 0606 07/16/17 0605 Results 24 hrs Laboratory Tests Test 07/16/17 06:05 Sodium Level 141 Potassium Level 3.8 Chloride Level 106 Carbon Dioxide Level 30 Anion Gap 9 Blood Urea Nitrogen 11 Creatinine 0.72 Glucose Level 123 Calcium Level 8.7 Magnesium Level 1.7 Medications Medications Current Medications Enoxaparin Sodium 40 mg 40 mg DAILY SC Last administered on 07/16/17 09:02; Admin Dose 40 MG; Start 07/09/17 at 09:00 Lactated Ringer's (Lr) 1,000 ml @ 75 mls/hr [id number] IV Last administered on 09:04; Admin Dose 75 MLS/HR; Start 07/09/17 at 15:00 Hydralazine HCl 10 mg 10 mg Q4H PRN IV ELEVATED BLOOD PRESSURE Last administered on 07/14/17 17:35; Admin Dose 10 MG; Start 07/09/17 at 23:00 Diltiazem HCl (Cardizem-D5W 125 Mg/125 ml Drip) 125 ml @ 5 mls/hr TITRATE IV Last administered on 07/13/17 06:55; Admin Dose 12 MLS/HR; Start 07/13/17 at 00:00 Aspirin (Aspirin) 81 mg DAILY NGT Last administered on 07/16/17 08:51; Admin Dose 81 MG; Start 07/14/17 at 09:00 Atorvastatin Calcium (Lipitor) 80 mg HS NGT Last administered on 07/15/17 20: 53; Admin Dose 80 MG; Start 07/13/17 at 21:00 Lisinopril (Zestril) 5 mg DAILY NGT Last administered on 07/16/17 08:53; Admin Dose 5 MG; Start 07/15/17 at 09:00 Carvedilol (Coreg) 6.25 mg BID NGT Last administered on 07/16/17 08:53; Admin Dose 6.25 MG; Start 07/14/17 at 21:00 Acetaminophen/ Hydrocodone Bitart ([place] (5/325)) 1 tab Q4H PRN NGT MODERATE PAIN LEVEL 4-6; Start 07/15/17 at 11:00 Morphine Sulfate (morphine) 2 mg Q4H PRN IV PAIN LEVEL 4-7 Last administered on 07/15/17 11:52; Admin Dose 2 MG; Start 07/15/17 at 11:00 CHARI MONTOYA Jul 16, 2017 15:16
[2017-07-16] MEDS: ATORVASTATIN 80 MG TAB NGT SCH (20:30)
[2017-07-16] MEDS: hydrALAzine 20 MG INJ IV PRN (23:32)
[2017-07-17] VITALS (11 sets, daily range): BP systolic 101–149; BP diastolic 55–78; PULSE 75–110; RESP 18
[2017-07-17] MEDS: LACTATED RINGER'S 1,000 ML IV SCH ×2 (05:18→23:00)
[2017-07-17] MEDS: ASPIRIN 81 MG TAB NGT SCH (09:54)
[2017-07-17] MEDS: LISINOPRIL 5 MG TAB NGT SCH (09:55)
[2017-07-17] MEDS: ENOXAPARIN 40 MG/0.4 ML SYG SC SCH (10:15)
--- NOTE | 2017-07-17 16:11 | CONS ---
Date/Time of Note Date/Time of Note DATE: 07/17/17 TIME: 16:09 Consult Date/Type/Reason Admit Date/Time Jul 08, 2017 at 15:12 Initial Consult Date 07/10/17 Type of Consultation: cardiology Ordering Provider: CHARI MONTOYA Subjective cardiology follow up note: S: d/w staff and rhythm was reviewed. pt remains in NSR one episode of SVT/ sinus tach on 07/12/17 but no more episode of SVT overnight . pt remains nonverbal. s/p NG tube O: General: no acute distress HEENT: NC/AT. pupils are equal. round. s/p NG tube NECK: NO JVD. no stridor. CV: RRR. systolic murmur; no gallop or rubs. PULM: no wheezing or rhonchi. GI: SOFT, NT, ND, no rebound or guarding Extremity: trace B/L LE edema. no clubbing. neuro: awake and alert but does not verbalize she is not able to move her right side. follows command Psych: calm now rectal: deferred ECG reviewed; NSR ant infarct age undetermined. ECHO : 1. Normal left ventricular cavity size. Normal left ventricular wall thickness. Mild left ventricular systolic dysfunction. Ejection fraction is visually estimated at 45 %. Severe hypokinesis of the mid-distal septum, mid-distal inferior wall, and apex. 2. No significant valvular stenosis or regurgitation seen. 3. Estimated peak PA systolic pressure 40 mmHg plus RA pressure. CT head results reviewed. CXR: no ACUTE cardiopulm disease. Objective Vital Signs Date Time Temp Pulse Resp B/P Pulse Ox O2 Delivery O2 Flow Rate FiO2 07/17/17 16:07 75 07/17/17 11:59 3.0 07/17/17 11:55 98.9 18 126/59 99 07/17/17 08:00 Nasal Cannula Intake and Output 07/16/17 07/16/17 07/17/17 15:00 23:00 07:00 Intake Total 1480 ml 630 ml Output Total 1400 ml 800 ml Balance 80 ml -170 ml Results/Medications Result Diagram: 07/16/17 0605 Medications Current Medications Enoxaparin Sodium 40 mg 40 mg DAILY SC Last administered on 07/17/17t 10:15; Admin Dose 40 MG; Start 07/09/17 at 09:00 Lactated Ringer's (Lr) 1,000 ml @ 75 mls/hr [id number] IV Last administered on 05:18; Admin Dose 75 MLS/HR; Start 07/09/17 at 15:00 Hydralazine HCl 10 mg 10 mg Q4H PRN IV ELEVATED BLOOD PRESSURE Last administered on 07/16/17 23:32; Admin Dose 10 MG; Start 07/09/17 at 23:00 Diltiazem HCl (Cardizem-D5W 125 Mg/125 ml Drip) 125 ml @ 5 mls/hr TITRATE IV Last administered on 07/13/17 06:55; Admin Dose 12 MLS/HR; Start 07/13/17 at 00:00 Aspirin (Aspirin) 81 mg DAILY NGT Last administered on 07/17/17 09:54; Admin Dose 81 MG; Start 07/14/17 at 09:00 Atorvastatin Calcium (Lipitor) 80 mg HS NGT Last administered on 07/16/17 20: 30; Admin Dose 80 MG; Start 07/13/17 at 21:00 Lisinopril (Zestril) 5 mg DAILY NGT Last administered on 07/17/17 09:55; Admin Dose 5 MG; Start 07/15/17 at 09:00 Carvedilol (Coreg) 6.25 mg BID NGT Last administered on 07/17/17 09:55; Admin Dose 6.25 MG; Start 07/14/17 at 21:00 Acetaminophen/ Hydrocodone Bitart ([place] (5/325)) 1 tab Q4H PRN NGT MODERATE PAIN LEVEL 4-6; Start 07/15/17 at 11:00 Morphine Sulfate (morphine) 2 mg Q4H PRN IV PAIN LEVEL 4-7 Last administered on 07/15/17 11:52; Admin Dose 2 MG; Start 07/15/17 at 11:00 Assessment/Plan Chief Complaint/Hosp Course 1. acute CVA 2. MILD cardiomyopathy 3. abnormal ECG and echo c/w CAD/ [place] 4. HTN 5. Dyslipidemia 6./ dysphagia 7. aphasia and right sided weakness 8. episode of SVT vs sinus tachy. ASA cont betablocker and statin cont coreg given her cardiomyopathy/ HTN CONT LISINOPRIL Diuresis will be given as needed base on;ly. Thank you for his referral. I will continue to follow along with you prn . BIBI MOORE MD [facility] Problems: BIBI MOORE MD Jul 17, 2017 16:11
[2017-07-17] MEDS: ATORVASTATIN 80 MG TAB NGT SCH (22:11)
[2017-07-18] VITALS (13 sets, daily range): BP systolic 125–174; BP diastolic 29–94; PULSE 83–110; RESP 17–19
[2017-07-18] MEDS: ASPIRIN 81 MG TAB NGT SCH (09:00)
[2017-07-18] MEDS: ENOXAPARIN 40 MG/0.4 ML SYG SC SCH (09:00)
[2017-07-18] MEDS: LISINOPRIL 5 MG TAB NGT SCH (09:00)
[2017-07-18] MEDS: LACTATED RINGER'S 1,000 ML IV SCH (12:20)
--- NOTE | 2017-07-18 15:19 | CONS ---
Date/Time of Note Date/Time of Note DATE: 07/18/17 TIME: 15:19 Consult Date/Type/Reason Admit Date/Time Jul 08, 2017 at 15:12 Initial Consult Date 07/10/17 Type of Consultation: cardiology Ordering Provider: CHARI MONTOYA Subjective cardiology follow up note: S: d/w staff and rhythm was reviewed. pt remains in NSR one episode of SVT/ sinus tach on 07/12/17 but no more episode of SVT overnight . pt remains nonverbal. s/p NG tube O: General: no acute distress HEENT: NC/AT. pupils are equal. round. s/p NG tube NECK: NO JVD. no stridor. CV: RRR. systolic murmur; no gallop or rubs. PULM: no wheezing or rhonchi. GI: SOFT, NT, ND, no rebound or guarding Extremity: trace B/L LE edema. no clubbing. neuro: awake and alert but does not verbalize she is not able to move her right side. follows command Psych: calm now rectal: deferred ECG reviewed; NSR ant infarct age undetermined. ECHO : 1. Normal left ventricular cavity size. Normal left ventricular wall thickness. Mild left ventricular systolic dysfunction. Ejection fraction is visually estimated at 45 %. Severe hypokinesis of the mid-distal septum, mid-distal inferior wall, and apex. 2. No significant valvular stenosis or regurgitation seen. 3. Estimated peak PA systolic pressure 40 mmHg plus RA pressure. Objective Vital Signs Date Time Temp Pulse Resp B/P Pulse Ox O2 Delivery O2 Flow Rate FiO2 07/18/17 11:03 99.0 80 18 139/49 91 07/18/17 07:30 Nasal Cannula 2.0 Intake and Output 07/17/17 07/17/17 07/18/17 15:00 23:00 07:00 Intake Total 580 ml 1360 ml Output Total 550 ml 850 ml Balance 30 ml 510 ml Results/Medications Result Diagram: 07/16/17 0605 Medications Current Medications Enoxaparin Sodium 40 mg 40 mg DAILY SC Last administered on 07/18/17 09:00; Admin Dose 40 MG; Start 07/09/17 at 09:00 Lactated Ringer's (Lr) 1,000 ml @ 75 mls/hr [id number] IV Last administered on 23:00; Admin Dose 75 MLS/HR; Start 07/09/17 at 15:00 Hydralazine HCl (Apresoline) 10 mg Q4H PRN IV ELEVATED BLOOD PRESSURE Last administered on 07/16/17 23:32; Admin Dose 10 MG; Start 07/09/17 at 23:00 Aspirin (Aspirin) 81 mg DAILY NGT Last administered on 07/18/17 09:00; Admin Dose 81 MG; Start 07/14/17 at 09:00 Atorvastatin Calcium (Lipitor) 80 mg HS NGT Last administered on 07/17/17 22: 11; Admin Dose 80 MG; Start 07/13/17 at 21:00 Lisinopril (Zestril) 5 mg DAILY NGT Last administered on 07/18/17 09:00; Admin Dose 5 MG; Start 07/15/17 at 09:00 Acetaminophen/ Hydrocodone Bitart ([place] (5/325)) 1 tab Q4H PRN NGT MODERATE PAIN LEVEL 4-6; Start 07/15/17 at 11:00 Morphine Sulfate (morphine) 2 mg Q4H PRN IV PAIN LEVEL 4-7 Last administered on 07/15/17 11:52; Admin Dose 2 MG; Start 07/15/17 at 11:00 Assessment/Plan Chief Complaint/Hosp Course 1. s/p acute CVA 2. MILD cardiomyopathy 3. abnormal ECG and echo c/w CAD/ [place] 4. HTN 5. Dyslipidemia 6./ dysphagia 7. aphasia and right sided weakness 8. episode of SVT vs sinus tachy. cont ASA cont statin cont coreg given her cardiomyopathy/ HTN CONT LISINOPRIL Diuresis will be given as needed base only. Thank you for his referral. I will continue to follow along with you prn . BIBI MOORE MD [facility] Problems: BIBI MOORE MD Jul 18, 2017 15:19
--- NOTE | 2017-07-18 15:50 | PN ---
Date/Time of Note Date/Time of Note DATE: 07/18/17 TIME: 15:47 Assessment/Plan VTE Prophylaxis VTE Prophylaxis Intervention: LMWH Lines/Catheters IV Catheter Type (from Nrs): Peripheral IV Urinary Cath still in place: Yes Reason Cath still needed: urinary retention Assessment/Plan Chief Complaint/Hosp Course 71 yo female who presents with R sided hemiplegia and expressive aphasia 2/2 CVA. Dysphagia requiring NG -> PEG to be placed. Hemiplegia, unable to ambulate. Requires machine long goods helper placement CVA: - Aspirin 81 daily - PT/OT - NG tube for feeds - PEG to be placed, pending consent procedure, appreciate SW assistance - Statin Systolic cardiomypoathy: - Coreg, and lisinopril H/o hypertension H/o hip replacemetn H/o cognitive impairment Discharge to machine long goods helper care facility after PEG Problems: Subjective 24 Hr Interval Summary Free Text/Dictation Patient remains hemiplegic and aphasic Failed swallow, needs PEG placed, pending Exam/Review of Systems Vital Signs Vitals Vital Signs Date Time Temp Pulse Resp B/P Pulse Ox O2 Delivery O2 Flow Rate FiO2 07/18/17 15:26 98.1 93 18 174/94 90 07/18/17 07:30 Nasal Cannula 2.0 Intake and Output 07/17/17 07/17/17 07/18/17 15:00 23:00 07:00 Intake Total 580 ml 1360 ml Output Total 550 ml 850 ml Balance 30 ml 510 ml Exam R hemiplegia Audible gurgling w NG in nose Appears comfortable Clear lungs Results Result Diagram: 07/16/17 0605 Medications Medications Current Medications Enoxaparin Sodium 40 mg 40 mg DAILY SC Last administered on 07/18/17 09:00; Admin Dose 40 MG; Start 07/09/17 at 09:00 Lactated Ringer's (Lr) 1,000 ml @ 75 mls/hr [id number] IV Last administered on 23:00; Admin Dose 75 MLS/HR; Start 07/09/17 at 15:00 Hydralazine HCl (Apresoline) 10 mg Q4H PRN IV ELEVATED BLOOD PRESSURE Last administered on 07/16/17 23:32; Admin Dose 10 MG; Start 07/09/17 at 23:00 Aspirin (Aspirin) 81 mg DAILY NGT Last administered on 07/18/17 09:00; Admin Dose 81 MG; Start 07/14/17 at 09:00 Atorvastatin Calcium (Lipitor) 80 mg HS NGT Last administered on 07/17/17 22: 11; Admin Dose 80 MG; Start 07/13/17 at 21:00 Lisinopril (Zestril) 5 mg DAILY NGT Last administered on 07/18/17 09:00; Admin Dose 5 MG; Start 07/15/17 at 09:00 Acetaminophen/ Hydrocodone Bitart ([place] (5/325)) 1 tab Q4H PRN NGT MODERATE PAIN LEVEL 4-6; Start 07/15/17 at 11:00 Morphine Sulfate (morphine) 2 mg Q4H PRN IV PAIN LEVEL 4-7 Last administered on 07/15/17 11:52; Admin Dose 2 MG; Start 07/15/17 at 11:00 BERNARD PICKERING MD Jul 18, 2017 15:50
[2017-07-18] MEDS: hydrALAzine 20 MG INJ IV PRN (16:44)
[2017-07-18] MEDS: ATORVASTATIN 80 MG TAB NGT SCH (21:55)
[2017-07-19] VITALS (12 sets, daily range): BP systolic 133–184; BP diastolic 74–96; PULSE 71–95; RESP 17–20
[2017-07-19] MEDS: LACTATED RINGER'S 1,000 ML IV SCH ×2 (04:29→15:11)
--- NOTE | 2017-07-19 08:20 | CONS ---
Date/Time of Note Date/Time of Note DATE: 07/19/17 TIME: 08:18 Consult Date/Type/Reason Admit Date/Time Jul 08, 2017 at 15:12 Initial Consult Date 07/10/17 Type of Consultation: cardiology Ordering Provider: CHARI MONTOYA Subjective cardiology follow up note: S: d/w staff and rhythm was reviewed. pt remains in NSR one episode of SVT/ sinus tach on 07/12/17 but no more episode of SVT since then. pt remains nonverbal. s/p NG tube O: General: no acute distress HEENT: NC/AT. pupils are equal. round. s/p NG tube NECK: NO JVD. no stridor. CV: RRR. systolic murmur; no gallop or rubs. PULM: no wheezing or rhonchi. GI: SOFT, NT, ND, no rebound or guarding Extremity: trace B/L LE edema. no clubbing. neuro: awake and alert but does not verbalize she is not able to move her right side. follows command Psych: calm now rectal: deferred ECHO : 1. Normal left ventricular cavity size. Normal left ventricular wall thickness. Mild left ventricular systolic dysfunction. Ejection fraction is visually estimated at 45 %. Severe hypokinesis of the mid-distal septum, mid-distal inferior wall, and apex. 2. No significant valvular stenosis or regurgitation seen. 3. Estimated peak PA systolic pressure 40 mmHg plus RA pressure. Objective Vital Signs Date Time Temp Pulse Resp B/P Pulse Ox O2 Delivery O2 Flow Rate FiO2 07/19/17 08:08 99.4 91 18 151/74 98 07/18/17 20:00 Nasal Cannula 2.0 Intake and Output 07/18/17 07/18/17 07/19/17 14:59 22:59 06:59 Intake Total 750 ml 1210 ml Output Total 950 ml Balance 750 ml 260 ml Results/Medications Result Diagram: 07/16/17 0605 Medications Current Medications Enoxaparin Sodium 40 mg 40 mg DAILY SC Last administered on 07/18/17 09:00; Admin Dose 40 MG; Start 07/09/17 at 09:00 Lactated Ringer's (Lr) 1,000 ml @ 75 mls/hr [id number] IV Last administered on 04:29; Admin Dose 75 MLS/HR; Start 07/09/17 at 15:00 Hydralazine HCl (Apresoline) 10 mg Q4H PRN IV ELEVATED BLOOD PRESSURE Last administered on 07/18/17 16:44; Admin Dose 10 MG; Start 07/09/17 at 23:00 Aspirin (Aspirin) 81 mg DAILY NGT Last administered on 07/18/17 09:00; Admin Dose 81 MG; Start 07/14/17 at 09:00 Atorvastatin Calcium (Lipitor) 80 mg HS NGT Last administered on 07/18/17 21: 55; Admin Dose 80 MG; Start 07/13/17 at 21:00 Lisinopril (Zestril) 5 mg DAILY NGT Last administered on 07/18/17 09:00; Admin Dose 5 MG; Start 07/15/17 at 09:00 Acetaminophen/ Hydrocodone Bitart ([place] (5/325)) 1 tab Q4H PRN NGT MODERATE PAIN LEVEL 4-6; Start 07/15/17 at 11:00 Morphine Sulfate (morphine) 2 mg Q4H PRN IV PAIN LEVEL 4-7 Last administered on 07/15/17 11:52; Admin Dose 2 MG; Start 07/15/17 at 11:00 Assessment/Plan Chief Complaint/Hosp Course 1. s/p acute CVA 2. MILD cardiomyopathy 3. abnormal ECG and echo c/w CAD/ [place] 4. HTN 5. Dyslipidemia 6./ dysphagia 7. aphasia and right sided weakness 8. episode of SVT vs sinus tachy. cont risk factor modifications: ASA, statin inc coreg CONT LISINOPRIL Diuresis will be given as needed base only. Thank you for his referral. I will continue to follow along with you prn . BIBI MOORE MD [facility] Problems: BIBI MOORE MD Jul 19, 2017 08:20
[2017-07-19 09:05] LABS: BASOPHILS % 0.2 % (0.0-2.0); EOSINOPHILS # 0.2 10^3/ul (0.0-0.5); EOSINOPHILS % 1.4 % (0.0-7.0); HEMATOCRIT 33.9 % (37.0-47.0); HEMOGLOBIN 11.2 g/dl (12.0-16.0); LYMPHOCYTES # 1.1 10^3/ul (0.8-2.9); LYMPHOCYTES % 8.3 % (15.0-51.0); MEAN CORPUSCULAR HEMOGLOBIN 30.9 pg (29.0-33.0); MEAN CORPUSCULAR VOLUME 93.4 fl (82.0-101.0); MEAN PLATELET VOLUME 11.4 fl (7.4-10.4); MONOCYTES % 7.7 % (0.0-11.0); NEUTROPHIL # 10.8 10^3/ul (1.6-7.5); NEUTROPHILS % 81.6 % (39.0-77.0); PLATELET COUNT 357 10^3/UL (140-415); RED BLOOD COUNT 3.63 10^6/ul (4.20-5.40); RED CELL DISTRIBUTION WIDTH 12.4 % (11.5-14.5); WHITE BLOOD COUNT 13.2 10^3/ul (4.8-10.8)
[2017-07-19] MEDS: LISINOPRIL 5 MG TAB NGT SCH (09:10)
[2017-07-19] MEDS: ASPIRIN 81 MG TAB NGT SCH (09:10)
[2017-07-19 09:15] LABS: ALBUMIN 2.9 g/dl (3.3-4.9); ALBUMIN/GLOBULIN RATIO 0.96; BILIRUBIN,INDIRECT 0.2 mg/dl (0-1.1); BILIRUBIN,TOTAL 0.2 mg/dl (0.2-1.3); CALCIUM 8.8 mg/dl (8.4-10.2); CREATININE 0.72 mg/dl (0.44-1.00); POTASSIUM 3.7 mmol/L (3.5-5.1); TOTAL PROTEIN 5.9 g/dl (6.1-8.1)
[2017-07-19] MEDS: ENOXAPARIN 40 MG/0.4 ML SYG SC SCH (09:15)
[2017-07-19] MEDS ORDERED: CEFAZOLIN 2 GM/50 ML (PMX) 50 ML IVPB SCH (10:30)
[2017-07-19] MEDS ORDERED: CEFAZOLIN 2 GM in SOD CHLORIDE 0.9% 50 ML IVPB ONE (10:30)
[2017-07-19] MEDS ORDERED: METOCLOPRAMIDE 10 MG INJ IV ONE (11:30)
--- NOTE | 2017-07-19 12:32 | PN ---
Date/Time of Note Date/Time of Note DATE: 07/19/17 TIME: 12:31 Assessment/Plan VTE Prophylaxis VTE Prophylaxis Intervention: LMWH Lines/Catheters IV Catheter Type (from Nrs): Peripheral IV Urinary Cath still in place: Yes Reason Cath still needed: urinary retention Assessment/Plan Chief Complaint/Hosp Course 71 yo female who presents with R sided hemiplegia and expressive aphasia 2/2 CVA. Dysphagia requiring NG -> PEG to be placed. Hemiplegia, unable to ambulate. Requires sixth grade teacher placement CVA: - Aspirin 81 daily - PT/OT - PEG placed today - Statin Chronic systolic cardiomyopathy: - Coreg, and lisinopril H/o hypertension H/o hip replacement H/o cognitive impairment Discharge to nursing home care facility after PEG Problems: Subjective 24 Hr Interval Summary Free Text/Dictation PEG to be placed today per Dr Templeton Otherwise no change to patient's clinical status Dc to LTAC following PEG Exam/Review of Systems Vital Signs Vitals Vital Signs Date Time Temp Pulse Resp B/P Pulse Ox O2 Delivery O2 Flow Rate FiO2 07/19/17 12:14 71 07/19/17 11:37 98.7 18 144/80 98 07/19/17 07:50 Nasal Cannula 2.0 Intake and Output 07/18/17 07/18/17 07/19/17 15:00 23:00 07:00 Intake Total 750 ml 1210 ml Output Total 950 ml Balance 750 ml 260 ml Results Result Diagram: 07/19/17 0818 07/19/17 0818 Results 24 hrs Laboratory Tests Test 07/19/17 08:18 White Blood Count 13.2 H Red Blood Count 3.63 L Hemoglobin 11.2 L Hematocrit 33.9 L Mean Corpuscular Volume 93.4 Mean Corpuscular Hemoglobin 30.9 Mean Corpuscular Hemoglobin Concent 33.0 Red Cell Distribution Width 12.4 Platelet Count 357 Mean Platelet Volume 11.4 H Neutrophils % 81.6 H Lymphocytes % 8.3 L Monocytes % 7.7 Eosinophils % 1.4 Basophils % 0.2 Nucleated Red Blood Cells % 0.0 Neutrophils # 10.8 H Lymphocytes # 1.1 Monocytes # 1.0 H Eosinophils # 0.2 Basophils # 0.0 Nucleated Red Blood Cells # 0.0 Sodium Level 140 Potassium Level 3.7 Chloride Level 103 Carbon Dioxide Level 29 Anion Gap 12 Blood Urea Nitrogen 14 Creatinine 0.72 Glucose Level 124 Calcium Level 8.8 Total Bilirubin 0.2 Direct Bilirubin 0.00 Indirect Bilirubin 0.2 Aspartate Amino Transf (AST/SGOT) 19 Alanine Aminotransferase (ALT/SGPT) 32 Alkaline Phosphatase 89 Total Protein 5.9 L Albumin 2.9 L Globulin 3.00 Albumin/Globulin Ratio 0.96 Medications Medications Current Medications Enoxaparin Sodium 40 mg 40 mg DAILY SC Last administered on 07/19/17 09:15; Admin Dose 40 MG; Start 07/09/17 at 09:00 Lactated Ringer's (Lr) 1,000 ml @ 75 mls/hr [id number] IV Last administered on 04:29; Admin Dose 75 MLS/HR; Start 07/09/17 at 15:00 Hydralazine HCl (Apresoline) 10 mg Q4H PRN IV ELEVATED BLOOD PRESSURE Last administered on 07/18/17 16:44; Admin Dose 10 MG; Start 07/09/17 at 23:00 Aspirin (Aspirin) 81 mg DAILY NGT Last administered on 07/19/17 09:10; Admin Dose 81 MG; Start 07/14/17 at 09:00 Atorvastatin Calcium (Lipitor) 80 mg HS NGT Last administered on 07/18/17 21: 55; Admin Dose 80 MG; Start 07/13/17 at 21:00 Lisinopril (Zestril) 5 mg DAILY NGT Last administered on 07/19/17 09:10; Admin Dose 5 MG; Start 07/15/17 at 09:00 Acetaminophen/ Hydrocodone Bitart ([place] (5/325)) 1 tab Q4H PRN NGT MODERATE PAIN LEVEL 4-6; Start 07/15/17 at 11:00 Morphine Sulfate (morphine) 2 mg Q4H PRN IV PAIN LEVEL 4-7 Last administered on 07/15/17 11:52; Admin Dose 2 MG; Start 07/15/17 at 11:00 Carvedilol 6.25 mg 6.25 mg BID NGT Last administered on 07/19/17 09:09; Admin Dose 6.25 MG; Start 07/19/17 at 09:00 Cefazolin Sodium/ Dextrose (Ancef 2 Gm/50 ml (Pmx)) 50 ml @ 100 mls/hr OC IVPB ; Start 07/19/17 at 10:30; Stop 07/20/17 at 10:29 BERNARD PICKERING MD Jul 19, 2017 12:32
[2017-07-19] MEDS ORDERED: LIDOCAINE 2% (SDV) 5 ML INJ ONE (19:47)
[2017-07-19] MEDS ORDERED: PROPOFOL 40 ML ONE (19:47)
--- NOTE | 2017-07-19 20:03 | HPN ---
Date/Time of Note Date/Time of Note DATE: 07/19/17 TIME: 20:03 Interval H&P Admission Note Pt. seen H&P reviewed: No system changes SOTERO SALVADOR MD Jul 19, 2017 20:03
--- NOTE | 2017-07-19 20:03 | OPPN ---
Date/Time of Note Date/Time of Note DATE: 07/19/17 TIME: 20:00 Proc Note GI Procedure Date 07/19/17 Indication: other (Feeding difficulties) Pre-procedure Diagnosis Feeding difficulties Post-procedure Diagnosis Impression: Uneventful PEG Placement of [place] 20 gastrostomy tube Plan: Start feedings tomorrow morning May use gastrostomy tube for medications tonight Abdominal binder Routine care of gastrostomy tube . Procedure Performed: Other (EGD plus PEG) Surgeon SOTERO SALVADOR MD See signature line [employer] none Anesthesia Type: MAC Anesthesiologist: EDY REDDY MD Tourniquet Time none EBL none Transfusion required none Biopsy 1: None Grafts/Implants [place] 20 gastrostomy tube Tubes/Drains none Complication(s) none Disposition: PACU Procedure Description After informed consent, with the patient/relatives understanding the procedure, its indications, potential risks and complications, including but not limited to : Allergic reaction, bleeding, perforation or infection, and all after all pertinent questions were answered to the patient's satisfaction, patient/ relative signed witnessed informed consent. Following this, premedication was administered slowly IV push under care of cardiovascular respiratory monitoring with pulse oximetry, and automatic blood pressure, and amusement ride inspector. Once to sedative effect was achieved the patient was placed in the left lateral decubitus, the panendoscope was introduced and advanced under visual control. Careful examination of the upper gastrointestinal tract, both on insertion as well as withdrawal of the instrument disclosed following findings: ESOPHAGUS: The mucosa of the entire esophagus was carefully examined and showed the following findings: The mucosa appears within normal limits. There is no evidence of esophagitis, varices, neoplasm or stricture. No hiatal hernia identified. STOMACH: Upon entrance to the stomach air was insufflated, the gastric valdes distended normally. The mucosa of the fundus, body and antrum of the stomach was carefully examined both head-on and on retroflexion, and showed the following findings: The mucosa appears within normal limits with no abnormalities. There is no evidence of gastritis, ulcers or neoplasm. PYLORUS: The pylorus was carefully examined and showed the following findings: The pylorus appears patent and within normal limits, with no evidence of gastric outlet obstruction. DUODENUM: The duodenal mucosa was carefully examined in the duodenal bulb as well as the second portion of the duodenum and showed the following findings: The mucosa appears unremarkable with no evidence of duodenitis, ulcer or neoplasm. The instrument was then brought back to the stomach and the anterior wall mid- body was identified by transillumination and "finger indentation", this area was then marked in the anterior wall of the abdomen, it was cleansed with Betadine and infiltrated with Xylocaine 1%. Following this a trocar needle was introduced into the gastric lumen under visual control with the endoscope, once in the gastric lumen a guide wire was advanced and secured with a polypectomy snare, at this point the endoscope was withdrawn bringing the guidewire out through the patient's mouth. Following this a [place] #20 gastrostomy tube was introduced over the guidewire, with the Shelby-Kaylen technique without difficulty , a small incision was performed in the skin to allow easy passage of the G-tube , once the position of the gastrostomy was confirmed, the external stopper and connectors were installed, and a clean dressing applied. The patient tolerated the procedure well and was transferred out of the endoscopy suite awake, and in good condition to continue recovery under observation, feedings will start in the next 12-24 hours and the discharge in the care will be instituted. Copies To: CC: SOTERO SALVADOR MD, MORDO MD Jul 19, 2017 20:03
[2017-07-19] MEDS: ATORVASTATIN 80 MG TAB NGT SCH (22:09)
[2017-07-19] MEDS: hydrALAzine 20 MG INJ IV PRN (22:09)
[2017-07-19] MEDS: morphine 2 MG INJ IV PRN (22:17)
[2017-07-20] VITALS (10 sets, daily range): BP systolic 115–163; BP diastolic 60–86; PULSE 80–99; RESP 18–19
[2017-07-20] MEDS: LACTATED RINGER'S 1,000 ML IV SCH (05:14)
--- NOTE | 2017-07-20 08:39 | CONS ---
Date/Time of Note Date/Time of Note DATE: 07/20/17 TIME: 08:38 Consult Date/Type/Reason Admit Date/Time Jul 08, 2017 at 15:12 Initial Consult Date 07/10/17 Type of Consultation: cardiology Ordering Provider: CHARI MONTOYA Subjective cardiology follow up note: S: d/w staff and rhythm was reviewed. pt remains in NSR one episode of SVT/ sinus tach on 07/12/17 but no more episode of SVT since then. pt remains nonverbal. s/p PEG 07/19 O: General: no acute distress HEENT: NC/AT. pupils are equal. round. NECK: NO JVD. no stridor. CV: RRR. systolic murmur; no gallop or rubs. PULM: no wheezing or rhonchi. GI: SOFT, NT, ND, no rebound or guarding Extremity: trace B/L LE edema. no clubbing. neuro: awake and alert but does not verbalize she is not able to move her right side. follows command Psych: calm now rectal: deferred ECHO : 1. Normal left ventricular cavity size. Normal left ventricular wall thickness. Mild left ventricular systolic dysfunction. Ejection fraction is visually estimated at 45 %. Severe hypokinesis of the mid-distal septum, mid-distal inferior wall, and apex. 2. No significant valvular stenosis or regurgitation seen. 3. Estimated peak PA systolic pressure 40 mmHg plus RA pressure. Objective Vital Signs Date Time Temp Pulse Resp B/P Pulse Ox O2 Delivery O2 Flow Rate FiO2 07/20/17 08:00 81 07/20/17 07:43 98.4 19 115/65 99 07/20/17 01:28 2.0 07/19/17 22:00 Nasal Cannula Intake and Output 07/19/17 07/19/17 07/20/17 15:00 23:00 07:00 Intake Total 750 ml Balance 750 ml Results/Medications Result Diagram: 07/19/1718 07/19/17 0818 Medications Current Medications Enoxaparin Sodium 40 mg 40 mg DAILY SC Last administered on 07/19/17 09:15; Admin Dose 40 MG; Start 07/09/17 at 09:00 Lactated Ringer's (Lr) 1,000 ml @ 75 mls/hr [id number] IV Last administered on 05:14; Admin Dose 75 MLS/HR; Start 07/09/17 at 15:00 Hydralazine HCl (Apresoline) 10 mg Q4H PRN IV ELEVATED BLOOD PRESSURE Last administered on 07/19/17 22:09; Admin Dose 10 MG; Start 07/09/17 at 23:00 Aspirin (Aspirin) 81 mg DAILY NGT Last administered on 07/19/17 09:10; Admin Dose 81 MG; Start 07/14/17 at 09:00 Atorvastatin Calcium (Lipitor) 80 mg HS NGT Last administered on 07/19/17 22: 09; Admin Dose 80 MG; Start 07/13/17 at 21:00 Lisinopril (Zestril) 5 mg DAILY NGT Last administered on 07/19/17 09:10; Admin Dose 5 MG; Start 07/15/17 at 09:00 Acetaminophen/ Hydrocodone Bitart ([place] (5/325)) 1 tab Q4H PRN NGT MODERATE PAIN LEVEL 4-6; Start 07/15/17 at 11:00 Morphine Sulfate (morphine) 2 mg Q4H PRN IV PAIN LEVEL 4-7 Last administered on 07/19/17 22:17; Admin Dose 2 MG; Start 07/15/17 at 11:00 Carvedilol 6.25 mg 6.25 mg BID NGT Last administered on 07/19/17 22:10; Admin Dose 6.25 MG; Start 07/19/17 at 09:00 Cefazolin Sodium/ Dextrose (Ancef 2 Gm/50 ml (Pmx)) 50 ml @ 100 mls/hr OC IVPB ; Start 07/19/17 at 10:30; Stop 07/20/17 at 10:29 Assessment/Plan Chief Complaint/Hosp Course 1. s/p acute CVA 2. MILD cardiomyopathy 3. abnormal ECG and echo c/w CAD/ [place] 4. HTN 5. Dyslipidemia 6./ dysphagia 7. aphasia and right sided weakness 8. episode of SVT vs sinus tachy. cont risk factor modifications: ASA, statin coreg CONT LISINOPRIL Diuresis will be given as needed base only. Thank you for his referral. I will continue to follow along with you prn . BIBI MOORE MD [facility] Problems: BIBI MOORE MD Jul 20, 2017 08:39
[2017-07-20] MEDS: ASPIRIN 81 MG TAB NGT SCH (09:03)
[2017-07-20] MEDS: LISINOPRIL 5 MG TAB NGT SCH (09:04)
[2017-07-20] MEDS: ENOXAPARIN 40 MG/0.4 ML SYG SC SCH (09:14)
--- NOTE | 2017-07-20 10:53 | PN ---
Date/Time of Note Date/Time of Note DATE: 07/20/17 TIME: 10:49 Assessment/Plan VTE Prophylaxis VTE Prophylaxis Intervention: SCD's Lines/Catheters IV Catheter Type (from Nrs): Peripheral IV Urinary Cath still in place: Yes Reason Cath still needed: other (indicate) (monitor ouput) Assessment/Plan Chief Complaint/Hosp Course Summary Assessment and Plan: Assessment: Dysphagia secondary to CVA PEG 07/19/17 Impression: Uneventful PEG Placement of [place] 20 gastrostomy tube CVA Plan: Continue TF advance as tolerated to goal of 50ml/hr Abdominal binder Continue Routine care of gastrostomy tube Patient seen in collaboration with Dr. Templeton Subjective: Course reviewed with nursing staff Patient interviewed and examined All labs, imaging and other results reviewed The patient resting, Tf started this am, will continue to monitor and advance TF as tolerated. PHYSICAL EXAMINATION: GENERAL: Well developed, well nourished, alert, unable to make needs known, no acute distress SKIN: No lesions, no stigmata chronic liver disease, no evidence of bleeding diathesis, g-tube in pace LYMPHATIC: No palpable lymphadenopathy. HEAD: Normocephalic, atraumatic, no tenderness. EYES: Pupils equal reactive to light and accommodation, full extraocular movements, sclera clear, non-icteric, no discharge. EARS/NOSE AND THROAT: Ears normal, nose normal, oropharynx normal, NECK: Supple, no masses, thyroid normal, CHEST: Inspection within normal limits. CARDIOVASCULAR: Heart: Regular rate and rhythm, RESPIRATORY: Lungs clear to auscultation GASTROINTESTINAL AND LIVER: Abdomen: Soft, non tenderness, non-distended, no hernias, no masses, no organomegaly, no ascites, no guarding, no rebound tenderness, normoactive bowel sounds. Rectal: Deferred. Problems: Exam/Review of Systems Vital Signs Vitals Vital Signs Date Time Temp Pulse Resp B/P Pulse Ox O2 Delivery O2 Flow Rate FiO2 07/20/17 08:00 81 07/20/17 07:43 98.4 19 115/65 99 07/20/17 01:28 2.0 07/19/17 22:00 Nasal Cannula Intake and Output 07/19/17 07/19/17 07/20/17 15:00 23:00 07:00 Intake Total 750 ml Balance 750 ml Results Result Diagram: 07/19/1718 11/29/17 0818 Medications Medications Current Medications Enoxaparin Sodium 40 mg 40 mg DAILY SC Last administered on 07/20/17 09:14; Admin Dose 40 MG; Start 07/09/17 at 09:00 Lactated Ringer's (Lr) 1,000 ml @ 75 mls/hr [id number] IV Last administered on 05:14; Admin Dose 75 MLS/HR; Start 07/09/17 at 15:00 Hydralazine HCl (Apresoline) 10 mg Q4H PRN IV ELEVATED BLOOD PRESSURE Last administered on 07/19/17 22:09; Admin Dose 10 MG; Start 07/09/17 at 23:00 Aspirin (Aspirin) 81 mg DAILY NGT Last administered on 07/20/17 09:03; Admin Dose 81 MG; Start 07/14/17 at 09:00 Atorvastatin Calcium (Lipitor) 80 mg HS NGT Last administered on 07/19/17 22: 09; Admin Dose 80 MG; Start 07/13/17 at 21:00 Lisinopril (Zestril) 5 mg DAILY NGT Last administered on 07/20/17 09:04; Admin Dose 5 MG; Start 07/15/17 at 09:00 Acetaminophen/ Hydrocodone Bitart ([place] (5/325)) 1 tab Q4H PRN NGT MODERATE PAIN LEVEL 4-6; Start 07/15/17 at 11:00 Morphine Sulfate (morphine) 2 mg Q4H PRN IV PAIN LEVEL 4-7 Last administered on 07/19/17 22:17; Admin Dose 2 MG; Start 07/15/17 at 11:00 Carvedilol (Coreg) 6.25 mg BID NGT Last administered on 07/20/17 09:04; Admin Dose 6.25 MG; Start 07/19/17 at 09:00 NOEMY FINCH Jul 20, 2017 10:53
[2017-07-20] MEDS ORDERED: ATOR80TA75 NGT (14:07)
[2017-07-20] MEDS ORDERED: ASPI81TA3 NGT (14:07)
--- NOTE | 2017-07-20 14:11 | DS ---
Date/Time of Note Date/Time of Note DATE: 07/20/17 TIME: 14:08 Discharge Summary Admission/Discharge Info Admit Date/Time Jul 08, 2017 at 15:12 Discharge Date/Time Discharge Diagnosis Stroke Patient Condition: Stable Hx of Present Illness 71 yo female with unclear medical history presenting with R hemiplegia and aphasia Unclear how long these symptoms have been present. Patient unable to provide history Per ED staff, a friend accompanied the patient to the hospital and said that she was noticed this way when she woke up this morning, but may have had R leg weakenss for a couple days. However also says that she has home assitants who change her diapers for her, and that there is a suggestion she is in hospice? I am unable to confirm these details as available phone number goes unanswered Hospital Course Patient foudn to have expressive aphasia and R hemiparesis concerning for stroke. Initial head CT in ED was negative, no TPA was administered. MRI was performed showing "1. Late subacute infarcts in the left lentiform nucleus extending into the left carson radiata. No definitive evidence of hemorrhagic conversion. No midline shift.2. Punctate likely late subacute infarct in the left medial thalamus." MRA showed: "30 - 50% stenosis of the cavernous segment of the right internal carotid artery. Less than 25% stenosis of the supraclinoid segment of the right internal carotid artery. Codominant A1 segments. Greater than 50% stenosis of the origin of the left A1 segment. 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 Patient remains hemiplegic and aphasic. She will be transferred to intermediate frame tender correction Meds Active Scripts Atorvastatin* (Atorvastatin*) 80 Mg Tablet, 80 MG NGT HS for 30 Days, #30 TAB Prov:BERNARD PICKERING MD 07/20/17 Aspirin (Aspirin) 81 Mg Chew, 81 MG NGT DAILY for 30 Days, #30 TAB Prov:BERNARD PICKERING MD 07/20/17 Reported Medications Ergocalciferol (Vitamin D2) (VITAMIN D2) 2,000 Unit Tablet, 2000 UNIT PO DAILY, TAB 07/08/17 Acetaminophen with Codeine (Acetaminophen-Cod #3 Tablet) 1 Each Tablet, 1 TAB PO Q6H Y for SEVERE PAIN LEVEL 7-10, #7 TAB 07/08/17 Metoprolol Tartrate* (Lopressor*) 50 Mg Tab, 50 MG PO BID, #60 TAB 07/08/17 Docusate Sodium* (Colace*) 100 Mg Capsule, 100 MG PO DAILY, #30 CAP 07/08/17 Benazepril Hcl* (Benazepril Hcl*) 40 Mg Tablet, 40 MG PO DAILY, #30 TAB 07/08/17 Primary Care Provider Not On Staff Doctor BERNARD PICKERING MD Jul 20, 2017 14:11
== END 2017-07-20 17:10 | DRG 65 ==
LOC: E/R 14:21 → TEL 15:12
PROVIDERS: ADMIT Internal Medicine; ATTEND Internal Medicine
PROC: 0DH63UZ Insertion of Feeding Device into Stomach, Percutaneous Approach (ICD-10-PCS; principal; 2017-07-19 19:00)
DX: I63.8 Other cerebral infarction (principal); I42.9 Cardiomyopathy, unspecified; G81.91 Hemiplegia, unspecified affecting right dominant side; R13.10 Dysphagia, unspecified; I11.0 Hypertensive heart disease with heart failure; I50.22 Chronic systolic (congestive) heart failure; R47.01 Aphasia; I47.1 Supraventricular tachycardia; R63.3 Feeding difficulties; I44.0 Atrioventricular block, first degree; E78.5 Hyperlipidemia, unspecified; R94.31 Abnormal electrocardiogram [ECG] [EKG]; Z74.09 Other reduced mobility; Z96.641 Presence of right artificial hip joint
CPT/HCPCS: 36415; 70450; 70544; 70551; 71010; 80048; 80053; 80061; 80307; 81001; 83036; 83735; 84100; 84443; 84484; 85025; 85610; 85730; 92507; 92523; 92526; 92610; 93005; 93306; 93308; 93880; 97110; 97161; 97530; J0360; J0690; J1650; J2270; J2765; J3475; J3480; J7042; J7120